=== PATIENT | female | born 1960 | race Caucasian/White ===

== ENCOUNTER 2019-04-30 10:44 | Inpatient (IN) | payer OTHER ==
[~2019-04-30] VITALS: Ht 144.8 cm; Wt 65.1 kg
[~2019-04-30 10:44] MED LIST: AMIT10 PO; AMOX500 PO; ASPI81CH PO; CODGUAEL PO; DOXY100 PO; PRED20 PO; PROCODE120 PO; Prinivil10 MG PO; TRAM50 PO
[2019-04-30] MEDS ORDERED: PRAV20 PO (11:12)
[2019-04-30 12:12] LABS: BASOPHILS ABSOLUTE AUTO 0.02 K/mm3 (0.00-0.23); BASOPHILS PERCENT AUTO 0 % (0-2); EOSINOPHILS ABSOLUTE AUTO 0.03 K/mm3 (0.00-0.68); EOSINOPHILS PERCENT AUTO 0 % (0-6); Hematocrit 20.2 % (33.0-51.0); IMMATURE GRAN ABSOLUTE AUTO 0.19 K/mm3 (0.00-0.10); IMMATURE GRAN PERCENT AUTO 1 % (0-1); LYMPHOCYTES PERCENT AUTO 3 % (21-46); MONOCYTES ABSOLUTE AUTO 0.91 K/mm3 (0.16-1.47); MONOCYTES PERCENT AUTO 7 % (4-13); Mean Corpuscular HGB 34.8 pg (26.0-34.0); Mean Corpuscular HGB Conc 34.7 g/dL (31.5-36.5); Mean Corpuscular Volume 101 fL (80-100); NEUTROPHILS PERCENT AUTO 89 % (41-73); Platelet Count 205 K/mm3 (150-400); RDW Standard Deviation 43.7 fL (35.1-46.3); Red Blood Cell Count 2.01 M/mm3 (3.80-5.20); White Blood Cell Count 13.55 K/mm3 (4.00-11.30)
[2019-04-30 12:39] LABS: Ethanol (Alcohol), Blood, Med <3 mg/dL; Troponin I <0.015 ng/mL (0.000-0.040)
[2019-04-30 12:56] LABS: Source, Urine Clean Catch
[2019-04-30 13:01] LABS: Bilirubin, Urine Neg (Neg); Blood, Urine Neg (Neg); Glucose Qualitative, Urine Neg (Neg); Ketones, Urine Neg (Neg); Leukocyte Esterase, Urine 1+ (Neg); Nitrite, Urine Neg (Neg); Protein, Urine Neg (Neg); Urobilinogen, Urine 1+ (Normal)
[2019-04-30 13:04] LABS: Alanine Aminotransfer (ALT/SGP 43 U/L (12-78); Albumin, Blood 2.2 g/dL (3.4-5.0); Albumin/Globulin Ratio 0.6 (0.8-1.8); Alk Phos 119 U/L (50-136); Anion Gap 13 mmol/L (6-16); Aspartate Aminotrans (AST/SGOT 23 U/L (12-37); Bilirubin, Total 0.5 mg/dL (0.1-1.0); Blood Urea Nitrogen 30 mg/dL (8-24); Bun/Creatinine Ratio 47.5 (12.0-20.0); CO2, Blood 17 mmol/L (21-32); Calcium, Blood 7.8 mg/dL (8.5-10.1); Chloride, Blood 83 mmol/L (98-108); Creatinine, Blood 0.63 mg/dL (0.40-1.00); Globulin, Blood 3.9 g/dL (2.2-4.0); Glomerular Filtration Rate >60 (60-); Glucose, Blood 76 mg/dL (70-99); Potassium, Blood 3.2 mmol/L (3.5-5.5); Sodium, Blood 113 mmol/L (136-145); Total Protein, Blood 6.1 g/dL (6.4-8.2)
[2019-04-30 13:07] LABS: Appearance, Urine Clear (Clear); Color, Urine Yellow (P-Yellow)
[2019-04-30 13:12] LABS: U Amphetamine Screen Not Detected; U Barbituate Screen Not Detected; U Benzodiazapine Screen Not Detected; U Buprenorphine Screen Not Detected; U Cannabinoids Screen Not Detected; U Cocaine Screen Not Detected; U Methadone Screen Not Detected; U Methamphetamine Screen Not Detected; U Opiates Screen Not Detected; U Oxycodone Screen Not Detected; U Phencyclidine Screen Not Detected; U Propoxyphene Screen Not Detected
[2019-04-30 13:14] LABS: Bacteria Few /hpf; Red Blood Cells, Urine 0-2 /hpf (0-2); Squamous Epithelial Cells Few /hpf (Few)
[2019-04-30] MEDS ORDERED: Norco 5-325 Ta1 EACH PO (13:52)
[2019-04-30 14:34] LABS: International Normalized Ratio 1.04
[2019-04-30 16:42] LABS: Hematocrit 16.4 % (33.0-51.0); Hemoglobin 5.8 g/dL (11.5-16.0)
[2019-04-30 16:59] LABS: Anion Gap 11 mmol/L (6-16); Blood Urea Nitrogen 27 mg/dL (8-24); Bun/Creatinine Ratio 50.3 (12.0-20.0); CO2, Blood 19 mmol/L (21-32); Calcium, Blood 7.5 mg/dL (8.5-10.1); Chloride, Blood 87 mmol/L (98-108); Creatinine, Blood 0.54 mg/dL (0.40-1.00); Glomerular Filtration Rate >60 (60-); Glucose, Blood 67 mg/dL (70-99); Potassium, Blood 3.2 mmol/L (3.5-5.5); Sodium, Blood 117 mmol/L (136-145)
--- NOTE | 2019-04-30 18:03 | NUR ---
ADMIT TO ICU, ROOM 5, VIA [facility] FROM ER. PATIENT ABLE TO TRANSFER FROM [facility] TO BED WITH SBA; SOMEWHAT WOBBILY. ADMITTED WITH DX: GI BLEED. RN CONTACTED DR. GARCIA (GI); HE STATES HE SPOKE TO ER PHYSICIAN AND WILL TRY AND SEE PATIENT THIS PM. WANTS PATIENT TO REMAIN NPO STATUS FOR NOW. PATIENT INFORMED RN THAT HER LAST BM WAS YESTERDAY AND HER STOOL WAS SOFT/FORMED AND BROWN; NO SIGN OF BLOOD. H&H WITH SIGNIFICANT DROP IN 4+ HOURS; 1ST UNIT RBC INITIATED IN E.D.; RN WILL COMPLETE TRANSFUSION AND THEN START 2ND UNIT RBC; WILL THEN CHECK BLOOD COUNT AGAIN. SEE ORDERS FOR DETAILS. PATIENT'S AUNT AND UNCLE BROUGHT HER TO THE ER AND ARE AT HER BEDSIDE NOW; VERY SUPPORTIVE. PATIENTS' NA+ LEVEL 117 AND K+ LEVEL WAS 3.2 (RECEIVED 1 LITER NS IN ER WELL K+RIDER. PATIENT DENIES GI UPSET BUT APPEARS PALE AND SOMEWHAT CONFUSED.
--- NOTE | 2019-04-30 19:00 | NUR ---
SUMMARY: REPORT GIVEN TO BETO MONROY. FAMILY REMAINS AT BEDSIDE; HOPING TO SPEAK WITH DR. MARISCAL' WHEN HE ARRIVES. PATIENT REMAINS NPO STATUS. 2ND UNIT RBC HUNG AT THIS TIME; WILL CHECK H&H FOLLOWING COMPLETION.
[2019-04-30] MEDS ORDERED: LISI20 PO (19:10)
--- NOTE | 2019-04-30 19:30 | NUR ---
PATIENT RESTING QUIETLY IN BED VISITING WITH FAMILY. 2ND UNIT OF PRBC INFUSING. PATIENT HAVING NO C/O PAIN OR NAUSEA.
[2019-04-30 21:43] LABS: Hematocrit 24.9 % (33.0-51.0); Hemoglobin 8.6 g/dL (11.5-16.0)
--- NOTE | 2019-04-30 21:43 | NUR ---
DOCTOR MARISCAL AND DOCTOR MADISON CALLED DOCTOR MARISCAL CALLED GIVEN UPDATE ON PATIENT AND INFORMED THAT PATIENT FAMILY ARE IN ROOM WITH PATIENT WHEN HE ARRIVES. DOCTOR MADISON CALLED FOR CLARIFICATION REGARDING IV FLUIDS AFTER PRBC TRANSFUSION.
--- NOTE | 2019-04-30 21:56 | NUR ---
DOCTOR DAVEY MOORE TO SEE PATIENT, FAMILY AT BEDSIDE
[2019-04-30 22:01] LABS: Anion Gap 10 mmol/L (6-16); Blood Urea Nitrogen 22 mg/dL (8-24); CO2, Blood 20 mmol/L (21-32); Calcium, Blood 7.4 mg/dL (8.5-10.1); Chloride, Blood 91 mmol/L (98-108); Creatinine, Blood 0.49 mg/dL (0.40-1.00); Glomerular Filtration Rate >60 (60-); Glucose, Blood 68 mg/dL (70-99); Potassium, Blood 3.4 mmol/L (3.5-5.5); Sodium, Blood 121 mmol/L (136-145)
[2019-05-01 01:43] LABS: Hematocrit 22.1 % (33.0-51.0); Hemoglobin 7.7 g/dL (11.5-16.0)
[2019-05-01 02:00] LABS: Anion Gap 9 mmol/L (6-16); Blood Urea Nitrogen 20 mg/dL (8-24); Bun/Creatinine Ratio 41.1 (12.0-20.0); CO2, Blood 21 mmol/L (21-32); Chloride, Blood 92 mmol/L (98-108); Creatinine, Blood 0.49 mg/dL (0.40-1.00); Glomerular Filtration Rate >60 (60-); Glucose, Blood 81 mg/dL (70-99); Sodium, Blood 122 mmol/L (136-145)
--- NOTE | 2019-05-01 06:42 | NUR ---
SUMMARY PATIENT RESTING QUIETLY, A&O BUT FORGETFUL AND SPONTANEOUS. 4TH UNIT PRBC INFUSING. PASSING SEVERAL SMALL LOOSE BLACK BM'S DURING THE NIGHT. PATIENT CANDACE TRANSFERRING TO BSC WITH 1 PERSON ASSIST. NO C/O PAIN OR NAUSEA T/O NIGHT. RECTAL AREA RED, CREAM PLACED TO RED AREA AND TO SCABS TO LOW BACK AND BUTTOCKS.
--- NOTE | 2019-05-01 07:39 | NUR ---
ASSUMED CARE REPORT FROM PORFIRIO Bedolla RN. PATIENT A&O, ASSISTED TO BSC WHERE SHE VOIDED AND PASSED DARK STOOL THAT SMELLED OF GI BLEED. UNSTEADY ON HER FEET. BACK WASHED, VAIBHAV AND AM CARE. BACK TO BED WITH BED ALARM ON. WANTED TO KEEP SCD'S OFF.
[2019-05-01 08:22] LABS: Hematocrit 30.4 % (33.0-51.0); Hemoglobin 10.6 g/dL (11.5-16.0); Mean Corpuscular HGB 31.4 pg (26.0-34.0); Mean Corpuscular HGB Conc 34.9 g/dL (31.5-36.5); Mean Corpuscular Volume 90 fL (80-100); Mean Platelet Volume 9.5 fL (9.1-12.4); Platelet Count 173 K/mm3 (150-400); RDW Coefficient Variation 14.6 % (11.7-14.2); Red Blood Cell Count 3.38 M/mm3 (3.80-5.20)
[2019-05-01 08:38] LABS: Anion Gap 9 mmol/L (6-16); Blood Urea Nitrogen 15 mg/dL (8-24); CO2, Blood 19 mmol/L (21-32); Calcium, Blood 7.4 mg/dL (8.5-10.1); Chloride, Blood 96 mmol/L (98-108); Creatinine, Blood 0.44 mg/dL (0.40-1.00); Glomerular Filtration Rate >60 (60-); Glucose, Blood 88 mg/dL (70-99); Potassium, Blood 3.8 mmol/L (3.5-5.5); Sodium, Blood 124 mmol/L (136-145)
[2019-05-01 08:51] LABS: BAND PERCENT MAN 4 % (0-8); BASOPHILS PERCENT MAN 0 % (0-2); EOSINOPHILS PERCENT MAN 0 % (0-6); LYMPHOCYTES ABSOLUTE MAN 0.55 K/mm3 (0.84-5.20); LYMPHOCYTES PERCENT MAN 5 % (21-46); METAMYELOCYTE ABSOLUTE MAN 0.11 K/mm3 (0.00-0.00); METAMYELOCYTE PERCENT MAN 1 % (0-0); MONOCYTES ABSOLUTE MAN 0.33 K/mm3 (0.16-1.47); MONOCYTES PERCENT MAN 3 % (4-13); SEG NEUTROPHILS PERCENT MAN 87 % (41-73); TOTAL CELLS COUNTED 100
--- NOTE | 2019-05-01 08:56 | NUR ---
PATIENT DOZING. ABDOMINAL ULTRASOUND BEING COMPLETED.
--- NOTE | 2019-05-01 13:25 | NUR ---
FREQUENT URGENT STOOLS
[2019-05-01 13:27] LABS: Hemoglobin 10.1 g/dL (11.5-16.0)
--- NOTE | 2019-05-01 16:56 | NUR ---
SON AT BEDSIDE. UPDATED ON CONDITION. PATIENT SAYS SHE IS GOING TO QUIT DRINKING. SHE ALSO TOLD ARMIDA WITH MATHEMATICAL SCIENCES PROFESSOR THE SAME.
--- NOTE | 2019-05-01 18:27 | NUR ---
DAY SURGERY HERE SETTING UP FOR EGD
--- NOTE | 2019-05-01 19:01 | NUR ---
05/01/191900 Windy Van History, Chart, Medications and Allergies reviewed before start of procedure.PATIENT DETERMINED TO BE ASA APPROPRIATE FOR PROPOFOL SEDATION PRIOR TO START OF PROCEDURE BY MONITOR INTACT WITH CONTINUOUS PULSE OXIMETRY AND INTERMITTENT BP. 3-LEAD EKG REVIEWED WITH PHYSICIAN PRIOR TO START OF PROCEDURE.O2 VIA N/C INTACT THROUGHOUT SEDATION/PROCEDURE.
--- NOTE | 2019-05-01 19:25 | NUR ---
EGD COMPLETE. PATIENT A&O. WILL REPORT TO PORFIRIO Bedolla RN
[2019-05-01 21:35] LABS: Anion Gap 7 mmol/L (6-16); Blood Urea Nitrogen 8 mg/dL (8-24); Bun/Creatinine Ratio 21.1 (12.0-20.0); CO2, Blood 22 mmol/L (21-32); Calcium, Blood 7.5 mg/dL (8.5-10.1); Chloride, Blood 99 mmol/L (98-108); Creatinine, Blood 0.38 mg/dL (0.40-1.00); Glomerular Filtration Rate >60 (60-); Glucose, Blood 91 mg/dL (70-99); Potassium, Blood 3.2 mmol/L (3.5-5.5); Sodium, Blood 128 mmol/L (136-145)
--- NOTE | 2019-05-01 21:44 | NUR ---
PATIENT AWAKENING EASILY POST EGD REQUESTING FOOD. NO C/O PAIN OR NAUSEA. DIET ORDER FOR FULL LIQUID DIET OBTAINED FROM DOCTOR MARISCAL. SEE NEW ORDERS FROM DOCTOR MARISCAL AND CARI TRIANA. PLAN TO TRANSFER TO ROOM [address] [place] [address] WITH TELE STATUS . PATIENT CANDACE PO WITHOUT DIFFICULTY. DOCTOR MARISCAL ABLE TO TALK WITH PATIENT AND PATIENTS FAMILY IN ROOM REGARDING EGD AND CONSULT FOR DOCTOR FERNANDEZ.
--- NOTE | 2019-05-01 23:12 | NUR ---
REPORT CALLED TO GABRIELLE PÉREZ FOR PATIENT TRANSFER TO ROOM 332
[2019-05-02 05:00] LABS: Hematocrit 29.9 % (33.0-51.0); Hemoglobin 10.3 g/dL (11.5-16.0); Mean Corpuscular HGB 31.7 pg (26.0-34.0); Mean Corpuscular HGB Conc 34.4 g/dL (31.5-36.5); Mean Corpuscular Volume 92 fL (80-100); Mean Platelet Volume 9.6 fL (9.1-12.4); Platelet Count 220 K/mm3 (150-400); RDW Coefficient Variation 15.5 % (11.7-14.2); RDW Standard Deviation 52.6 fL (35.1-46.3); Red Blood Cell Count 3.25 M/mm3 (3.80-5.20); White Blood Cell Count 10.72 K/mm3 (4.00-11.30)
--- NOTE | 2019-05-02 05:17 | NUR ---
SHIFT SUMMARY PT TRANSFERED FROM ICU 5. PT IS PLEASANT AND COOPERATIVE BUT FORGETFUL AT TIMES. SETTING OFF THE BED ALARM X 1 TO GET UP TO THE RESTROOM. SLIGHTLY UNSTEADY ON HER FEET. 1 ASSIST TO BSC. NO STOOL THIS EVENING. URINE DARK AND CONCENTRATED. PT HAS DENIED ANY PAIN OR NAUSEA. ATE JELLO AND BROTH THIS EVENING AND TOLERATED WELL. NO ACUTE CHANGES SINCE TRANSFER. PT RESTING IN BED AT THIS TIME. VSS. WILL CONTINUE TO MONITOR.
[2019-05-02 05:21] LABS: Albumin, Blood 1.6 g/dL (3.4-5.0); Anion Gap 6 mmol/L (6-16); Blood Urea Nitrogen 7 mg/dL (8-24); Bun/Creatinine Ratio 17.2 (12.0-20.0); CO2, Blood 22 mmol/L (21-32); Calcium, Blood 7.5 mg/dL (8.5-10.1); Chloride, Blood 100 mmol/L (98-108); Creatinine, Blood 0.41 mg/dL (0.40-1.00); Glomerular Filtration Rate >60 (60-); Glucose, Blood 100 mg/dL (70-99); Phosphorus, Blood 2.4 mg/dL (2.5-4.9); Potassium, Blood 3.4 mmol/L (3.5-5.5); Sodium, Blood 128 mmol/L (136-145)
[2019-05-02 05:30] LABS: BAND PERCENT MAN 4 % (0-8); BASOPHILS PERCENT MAN 0 % (0-2); EOSINOPHILS PERCENT MAN 0 % (0-6); LYMPHOCYTES ABSOLUTE MAN 0.64 K/mm3 (0.84-5.20); LYMPHOCYTES PERCENT MAN 6 % (21-46); METAMYELOCYTE PERCENT MAN 1 % (0-0); MONOCYTES ABSOLUTE MAN 0.32 K/mm3 (0.16-1.47); MONOCYTES PERCENT MAN 3 % (4-13); NEUTROPHILS ABSOLUTE MAN 9.64 K/mm3 (1.96-9.15); SEG NEUTROPHILS PERCENT MAN 86 % (41-73); TOTAL CELLS COUNTED 100
--- NOTE | 2019-05-02 19:00 | NUR ---
PT. IS IMPULSIVE AND DOES NOT USE THE CALL LIGHT. PT. FORGETFUL, CALLED HER SON TO BRING HER FISH AND CHIPS FOR DINNER, REMINDED HER SHE COULD ONLY HAVE FULL LIQUIDS, SISTER CAME IN AND PT. ASKED TO GO OUTSIDE, LET HER KNOW SHE HAD 2 IV FLUIDS THAT NEEDED TO RUN CONTINUOUSLY AND THAT SHE COULDN'T TAKE THEM OUTSIDE. TOLD HER COMPANY THAT I WAS A REAL MEANIE.
--- NOTE | 2019-05-03 00:22 | NUR ---
No s or sx of withdrawl noted at this time
--- NOTE | 2019-05-03 07:26 | NUR ---
a+o, complusive but cooperative, standby assist due to hoses, drip continued in one IV through out night, other saline locked, room air, walking rounds completed with day shift
[2019-05-03 09:35] LABS: Hematocrit 30.8 % (33.0-51.0); Hemoglobin 10.4 g/dL (11.5-16.0); Mean Corpuscular HGB 31.5 pg (26.0-34.0); Mean Corpuscular HGB Conc 33.8 g/dL (31.5-36.5); Mean Corpuscular Volume 93 fL (80-100); Mean Platelet Volume 9.4 fL (9.1-12.4); Platelet Count 234 K/mm3 (150-400); RDW Coefficient Variation 15.6 % (11.7-14.2); RDW Standard Deviation 53.1 fL (35.1-46.3); White Blood Cell Count 9.68 K/mm3 (4.00-11.30)
[2019-05-03 09:53] LABS: Albumin, Blood 1.7 g/dL (3.4-5.0); Anion Gap 10 mmol/L (6-16); Blood Urea Nitrogen 5 mg/dL (8-24); Bun/Creatinine Ratio 13.4 (12.0-20.0); CO2, Blood 20 mmol/L (21-32); Calcium, Blood 7.7 mg/dL (8.5-10.1); Chloride, Blood 95 mmol/L (98-108); Creatinine, Blood 0.37 mg/dL (0.40-1.00); Glomerular Filtration Rate >60 (60-); Glucose, Blood 154 mg/dL (70-99); Potassium, Blood 3.5 mmol/L (3.5-5.5); Sodium, Blood 125 mmol/L (136-145)
--- NOTE | 2019-05-03 19:00 | NUR ---
FAMILY MEETING WITH DR. MARISCAL RE: PT. PLAN OF CARE AND EXPLAINING PT.'S PROBLEMS. PT. HAS BEEN UP SEVERAL TIMES TO THE BATHROOM, SETS OFF BED ALARM EACH TIME, DOES NOT USE CALL LIGHT. STOOL SAMPLE COMPLETE.
--- NOTE | 2019-05-03 19:42 | NUR ---
DR Hwang here for gi consult with pt and family to discuss fininding and plan of care to treat gi bleed. sample for hpylori sent and reportednegative. PT continues impulsive and sets off bed alarm wanting to get up out of bed. Large Family present at bedside, discussed plan of care with MD Hwang for 30 minutes.
--- NOTE | 2019-05-04 02:56 | NUR ---
58 year old Female with negative CIWA denies need for antianxiety med to tx ETOH withdrawl. She is resting quietly and has no complaints except when up amb to bathroom says her knees hurt. PT's Family had care conferece with DR Skyler Hwang and he called at 0220 am to say PT may be transferred to [facility] today so dc lowfat diet and allow water only. PT has no CO nausea or abd pain on protonix gtt 10 ml per hour ongoing. Had a BM yesterday neg for HPylori. Up with 1 assist to amb to BR. Uses fww with slightly unsteady gait. Fall precautions with bed alarm continue. no fever or acute pain.
[2019-05-04 05:35] LABS: Albumin, Blood 1.7 g/dL (3.4-5.0); Anion Gap 7 mmol/L (6-16); Blood Urea Nitrogen 6 mg/dL (8-24); Bun/Creatinine Ratio 15.6 (12.0-20.0); CO2, Blood 24 mmol/L (21-32); Calcium, Blood 7.9 mg/dL (8.5-10.1); Chloride, Blood 95 mmol/L (98-108); Creatinine, Blood 0.38 mg/dL (0.40-1.00); Glomerular Filtration Rate >60 (60-); Glucose, Blood 98 mg/dL (70-99); Potassium, Blood 3.9 mmol/L (3.5-5.5); Sodium, Blood 126 mmol/L (136-145)
--- NOTE | 2019-05-04 08:44 | NUR ---
CIWA =0 AT THIS TIME. ALERT AND ORIENTED. WAITING FOR FOR POSSIBLE TRANSFER TO [facility].
[2019-05-04] MEDS ORDERED: B-1100 MG PO (12:59)
[2019-05-04] MEDS ORDERED: Multivitamin1 EAC1 PO (12:59)
[2019-05-04] MEDS ORDERED: PANT40 PO (13:00)
--- NOTE | 2019-05-04 15:06 | NUR ---
REVIEWED EXTENSIVELY D'C W/PATIENT AND SON. AWARE ; NO SMOKING, NO DRINKING ETOH OR ANY NSAIDS. AWARE TO KEEP F/U APPT NEXT WEEK. AWARE TO SCIENTIFIC INFORMATICS LEADER MEDS. ANSWER ALL QUESTIONS. IN W/C TO POV
[2019-07-06] MEDS ORDERED: Aspirin EC81 MG PO (11:13)
[2019-07-06] MEDS ORDERED: LISI20 PO (11:14)
[2019-07-06] MEDS ORDERED: Pravachol40 MG PO (11:14)
[2019-07-06] MEDS ORDERED: PROAIR RESPICL90 MCG INH (11:15)
[2019-07-06] MEDS ORDERED: VITAMIN D32000 UNI1 PO (11:15)
[2019-07-06] MEDS ORDERED: Flonase 0.05% N16 GM (11:15)
[2019-07-06] MEDS ORDERED: Colace100 MG PO (11:16)
[2019-07-06] MEDS ORDERED: HYDHCL25 PO (11:17)
[2019-07-06] MEDS ORDERED: DIGOX250 MCG PO (11:17)
[2019-07-06] MEDS ORDERED: PANT40 PO (11:17)
[2019-07-06] MEDS ORDERED: METO25ER PO (11:18)
[2019-07-06] MEDS ORDERED: DILTIAZEM 24HR240 M2 PO (11:18)
[2019-07-06] MEDS ORDERED: HYDR1TAB94 PO (11:22)
[2019-07-06] MEDS ORDERED: PRINIVIL10 MG PO (11:23)
== END 2019-05-04 14:58 | DRG 381 ==
LOC: ER 10:44 → ICUE 14:14 → ERHOLD 14:14 → MEDS 14:14 → ICUE 18:05 → MEDS 05-01 23:22
PROVIDERS: Emergency Medicine; Internal Medicine; Nurse Practitioner Acute Care; ADMIT Internal Medicine
PROC: 30233N1 Transfusion of Nonautologous Red Blood Cells into Peripheral Vein, Percutaneous Approach (ICD-10-PCS; principal; 2019-04-30)
PROC: 0DJ08ZZ Inspection of Upper Intestinal Tract, Via Natural or Artificial Opening Endoscopic (ICD-10-PCS; 2019-05-01)
DX: K22.11 Ulcer of esophagus with bleeding (principal); E87.1 Hypo-osmolality and hyponatremia; E44.1 Mild protein-calorie malnutrition; D62 Acute posthemorrhagic anemia; K26.6 Chronic or unspecified duodenal ulcer with both hemorrhage and perforation; I10 Essential (primary) hypertension; E78.5 Hyperlipidemia, unspecified; F17.210 Nicotine dependence, cigarettes, uncomplicated; E87.6 Hypokalemia; E87.70 Fluid overload, unspecified; F10.20 Alcohol dependence, uncomplicated; Z79.82 Long term (current) use of aspirin; J43.9 Emphysema, unspecified; Z86.14 Personal history of Methicillin resistant Staphylococcus aureus infection; E83.39 Other disorders of phosphorus metabolism; E86.0 Dehydration; T39.015A Adverse effect of aspirin, initial encounter; T39.315A Adverse effect of propionic acid derivatives, initial encounter; Y92.9 Unspecified place or not applicable
CPT/HCPCS: 36415; 36430; 70450; 71046; 74170; 80048; 80053; 80069; 81001; 82272; 83735; 83880; 84484; 85014; 85018; 85025; 85027; 85610; 85730; 86850; 86900; 86901; 86923; 87086; 87338; 93005; 93010; 93306; 93971; 93975; 94640; 94667; 94760; 96361; 96365; 96366; 96375; 97116; 97162; 97165; 97530; 99285-25; 99406; C9113; G0480; J2704; J3411; J3475; J3480; J7030; J7042; J7050; J7060; J7120; P9016; Q9967

== ENCOUNTER 2019-05-08 07:38 | Inpatient (IN) | payer OTHER ==
[~2019-05-08] VITALS: Ht 144.8 cm; Wt 53.5 kg
[~2019-05-08 07:38] MED LIST changes: +B-1100 MG PO; +LISI20 PO; +Multivitamin1 EAC1 PO; +Norco 5-325 Ta1 EACH PO; +PANT40 PO; +PRAV20 PO
[2019-05-08 08:25] LABS: Hematocrit 29.6 % (33.0-51.0); Hemoglobin 9.8 g/dL (11.5-16.0); Mean Corpuscular HGB 31.2 pg (26.0-34.0); Mean Corpuscular HGB Conc 33.1 g/dL (31.5-36.5); Mean Corpuscular Volume 94 fL (80-100); Mean Platelet Volume 9.9 fL (9.1-12.4); Platelet Count 386 K/mm3 (150-400); RDW Coefficient Variation 14.6 % (11.7-14.2); RDW Standard Deviation 50.9 fL (35.1-46.3); Red Blood Cell Count 3.14 M/mm3 (3.80-5.20)
[2019-05-08 08:50] LABS: BAND PERCENT MAN 25 % (0-8); BASOPHILS PERCENT MAN 0 % (0-2); EOSINOPHILS PERCENT MAN 0 % (0-6); LYMPHOCYTES ABSOLUTE MAN 0.73 K/mm3 (0.84-5.20); LYMPHOCYTES PERCENT MAN 11 % (21-46); MONOCYTES ABSOLUTE MAN 0.53 K/mm3 (0.16-1.47); MONOCYTES PERCENT MAN 8 % (4-13); NEUTROPHILS ABSOLUTE MAN 5.42 K/mm3 (1.96-9.15); SEG NEUTROPHILS PERCENT MAN 56 % (41-73); TOTAL CELLS COUNTED 100
[2019-05-08 08:57] LABS: Alanine Aminotransfer (ALT/SGP 32 U/L (12-78); Albumin, Blood 1.6 g/dL (3.4-5.0); Albumin/Globulin Ratio 0.4 (0.8-1.8); Alk Phos 127 U/L (50-136); Anion Gap 6 mmol/L (6-16); Aspartate Aminotrans (AST/SGOT 11 U/L (12-37); Bilirubin, Total 0.4 mg/dL (0.1-1.0); Blood Urea Nitrogen 7 mg/dL (8-24); Bun/Creatinine Ratio 17.5 (12.0-20.0); CO2, Blood 28 mmol/L (21-32); Calcium, Blood 7.7 mg/dL (8.5-10.1); Chloride, Blood 94 mmol/L (98-108); Ethanol (Alcohol), Blood, Med <3 mg/dL; Glomerular Filtration Rate >60 (60-); Glucose, Blood 90 mg/dL (70-99); Potassium, Blood 3.2 mmol/L (3.5-5.5); Sodium, Blood 128 mmol/L (136-145); Total Protein, Blood 5.6 g/dL (6.4-8.2); Troponin I 0.022 ng/mL (0.000-0.040)
[2019-05-08 09:45] LABS: Source, Urine Clean Catch
[2019-05-08 09:49] LABS: Bilirubin, Urine Neg (Neg); Blood, Urine Neg (Neg); Glucose Qualitative, Urine Neg (Neg); Ketones, Urine 1+ (Neg); Leukocyte Esterase, Urine Neg (Neg); Nitrite, Urine Neg (Neg); Protein, Urine 2+ (Neg); Specific Gravity, Urine 1.015 (1.003-1.022); Urobilinogen, Urine 2+ (Normal)
[2019-05-08 10:08] LABS: Appearance, Urine Clear (Clear); Color, Urine Yellow (P-Yellow)
[2019-05-08 10:09] LABS: Red Blood Cells, Urine 0-2 /hpf (0-2)
[2019-05-08 10:10] LABS: Bacteria Mod /hpf; Squamous Epithelial Cells Mod /hpf (Few)
--- NOTE | 2019-05-08 15:07 | NUR ---
pt arrived to pcu from ED, she is accompanied by a male family member. a/ox3, pleasant and cooperative with care, follows commands well, denies pain or sob. lungs are clear t/o, an occ wheeze, is currently on r/a, resp even and unlabored, no cough noted, hrr, tele in place running sr per monitor, see strip, 3+ edema noted to b/l le, ppp+1, cap refill <3sec, vs stable, afebrile, iv site is clear and patent, btx4, abd round soft nontender, voids without diff, skin c/w/d, maew, art, call light in reach.
[2019-05-08 16:07] LABS: Free Thyroxine 1.81 ng/dL (0.70-1.60)
[2019-05-08 16:09] LABS: Thyroid Stimulating Hormone 2.85 uIU/mL (0.360-4.800); Triiodothyronine, Free 2.2 pg/mL (2.18-3.98)
[2019-05-08 16:38] LABS: Percent Saturation 8.3 % (15.0-50.0)
--- NOTE | 2019-05-08 18:20 | NUR ---
PT INDEPENDENT TO BATHROOM, LOTS OF FAMILY IN ROOM, SHE STATES SHE IS COMFORTABLE. NO FURTHER CHANGES. CALL LIGHT IN REACH.
--- NOTE | 2019-05-08 21:27 | NUR ---
Notified by tele alarm security or surveillance monitor of tacycardic hr of 151 and change in rhythm from NSR to Afib. went to see pt, states she feels "sweaty" but denies SOB, chest pain, chest pressure. Pt alert and oriented. Breathing easy and unlabored. VS assessed and documented. Pt with return of NSR and HR in 90's within minutes. Currently resting comfortably eating emeka crackers. will continue to monitor.
[2019-05-09 03:52] LABS: BASOPHILS ABSOLUTE AUTO 0.08 K/mm3 (0.00-0.23); BASOPHILS PERCENT AUTO 1 % (0-2); Hematocrit 31.7 % (33.0-51.0); Hemoglobin 10.8 g/dL (11.5-16.0); LYMPHOCYTES ABSOLUTE AUTO 0.76 K/mm3 (0.84-5.20); LYMPHOCYTES PERCENT AUTO 9 % (21-46); MONOCYTES ABSOLUTE AUTO 0.98 K/mm3 (0.16-1.47); MONOCYTES PERCENT AUTO 11 % (4-13); Mean Corpuscular HGB 31.4 pg (26.0-34.0); Mean Corpuscular HGB Conc 34.1 g/dL (31.5-36.5); Mean Corpuscular Volume 92 fL (80-100); Mean Platelet Volume 9.9 fL (9.1-12.4); Platelet Count 443 K/mm3 (150-400); RDW Coefficient Variation 14.6 % (11.7-14.2); RDW Standard Deviation 49.1 fL (35.1-46.3); Red Blood Cell Count 3.44 M/mm3 (3.80-5.20); White Blood Cell Count 8.64 K/mm3 (4.00-11.30)
[2019-05-09 03:58] LABS: EOSINOPHILS ABSOLUTE AUTO 0.05 K/mm3 (0.00-0.68); EOSINOPHILS PERCENT AUTO 1 % (0-6); IMMATURE GRAN ABSOLUTE AUTO 0.17 K/mm3 (0.00-0.10); IMMATURE GRAN PERCENT AUTO 2 % (0-1); NEUTROPHILS PERCENT AUTO 76 % (41-73)
[2019-05-09 04:14] LABS: Anion Gap 6 mmol/L (6-16); Blood Urea Nitrogen 9 mg/dL (8-24); Bun/Creatinine Ratio 21.4 (12.0-20.0); CO2, Blood 29 mmol/L (21-32); Calcium, Blood 7.9 mg/dL (8.5-10.1); Chloride, Blood 94 mmol/L (98-108); Creatinine, Blood 0.42 mg/dL (0.40-1.00); Glomerular Filtration Rate >60 (60-); Glucose, Blood 116 mg/dL (70-99); Potassium, Blood 3.7 mmol/L (3.5-5.5); Sodium, Blood 129 mmol/L (136-145)
--- NOTE | 2019-05-09 05:33 | NUR ---
Shift Summary VSS. no new events on tele since paroxysmal afib event. Pt remains alert and oriented, independant in room, o2 saturations>90% on RA. pt slept on and off this shift. denies chest pain or pressure, denies SOB. Uses call light appropriately, makes needs known. No changes since initial assessment. Will continue to monitor and update.
--- NOTE | 2019-05-09 08:08 | NUR ---
PT LAYING IN BED WATCHING TV, A/OX3, [place], PLEASANT AND COOPERATIVE WITH CARE, FOLLOWS COMMANDS WELL, STATES SHE DID NOT SLEEP WELL LAST NIGHT, BUT FEELS OK. LUNGS ARE CLEAR IN UPPER EMERSON, COURSE IN BASES, RESP EVEN AND UNLABORED, SATES ARE IN THE MID 90'S, NO COUGH NOTED, HRR, TELE IN PLACE RUNNING SR PER MONITOR, SEE STRIP, 3+PITTING EDEMA, PT STATES IS NOT TIGHT YESTERDAY, PPP FAINT, CAP REFILL <3SEC, VS STABLE, TEMP OF 100.2, SHE IS SEVERAL BLANKETS IN PLACE, IV TO R HAND SITE IS CLEAR AND PATENT, BTX4, ABD ROUND SOFT NONTENDER, VOIDING WITH OUT DIFF, SKIN C/W/D, JEAN HENRIQUEZ, CALL LIGHT IN REACH.
--- NOTE | 2019-05-09 13:35 | NUR ---
REPORT RECEIVED FROM PRAVEEN RN, NO ACUTE ISSUES NOTED, PATIENT RESTING QUEITLY. WILL CONTINUE TO MONITOR FOR CHANGES.
--- NOTE | 2019-05-09 20:05 | NUR ---
NO ACUTE CHANGES NOTED. PATIENT CONTINUES TO MAINTAIN HEART RATE IN THE 130'S - 140'S. PATIENT HAD A 13 BEAT RUN OF MD PETE IS AWARE. PATIENT SEEMS TO BE SLIGHTLY CONFUSED AN DISORIENTED WHEN SHE WAKES FROM NAPPING AND NEEDS TO GET UP AND GO TO THE RESTROOM. NO CURRENT COMPLAINTS OF PAIN OR DISCOMFORT NOTED. WILL CONTINUE TO MONITOR FOR CHANGES.
--- NOTE | 2019-05-10 03:24 | NUR ---
ASSUMED CARE OF PATIENT AT [facility] 1909 FROM DAVID Aggarwal RN. PATIENT ALERT AND ORIENTED; HARD OF HEARING; FORGETFUL AND IMPULSIVE AT TIMES; PATIENT APPEARS UNSTEADY ON FEET WHEN FIRST GETTING OUT OF BED; BEDSIDE COMMODE USED. PATIENT REPORTS PAIN IN LEGS AND BACK; LEG PAIN RELATED TO EDEMA; CHRONIC BACK PAIN; MEDICATED PER EMAR AND K-PAD GIVEN; PATIENT REPORTS GOOD RESULTS. PATIENT HAS ATTENDS IN PLACE FOR INCONTINENCE WHEN GETTING UP TO BEDSIDE COMMODE; PATIENT DENIES NUMBNESS, TINGLING, DIZZINESS AND NAUSEA. PATIENT'S IV WAS NOT PATENT AT SHIFT CHANGE; BEARING MAKER PLACE NEW IV; CARDIZEM GTT RESTARTED; DIG LOADED. AFIB WITH RATE IN 140'S AT START OF SHIFT; RATE CURRENTLY 110'S; CARDIZEM TITRATED FROM 20 TO 10ML/HR. MULTIPLE FAMILY MEMBERS VISITING AT SHIFT CHANGE. PATIENT CURRENTLY RESTING IN BED; CALL LIGHT IN REACH; BED IN LOWEST POSISTION; WILL CONTINUE TO MONITOR AND ASSESS UNTIL END OF SHIFT.
[2019-05-10 04:24] LABS: BASOPHILS ABSOLUTE AUTO 0.04 K/mm3 (0.00-0.23); BASOPHILS PERCENT AUTO 1 % (0-2); EOSINOPHILS PERCENT AUTO 2 % (0-6); Hematocrit 30.4 % (33.0-51.0); Hemoglobin 10.1 g/dL (11.5-16.0); IMMATURE GRAN ABSOLUTE AUTO 0.06 K/mm3 (0.00-0.10); IMMATURE GRAN PERCENT AUTO 1 % (0-1); LYMPHOCYTES ABSOLUTE AUTO 0.87 K/mm3 (0.84-5.20); LYMPHOCYTES PERCENT AUTO 14 % (21-46); MONOCYTES PERCENT AUTO 13 % (4-13); Mean Corpuscular HGB 31.6 pg (26.0-34.0); Mean Corpuscular HGB Conc 33.2 g/dL (31.5-36.5); Mean Corpuscular Volume 95 fL (80-100); Mean Platelet Volume 9.5 fL (9.1-12.4); NEUTROPHILS ABSOLUTE AUTO 4.34 K/mm3 (1.96-9.15); NEUTROPHILS PERCENT AUTO 70 % (41-73); Platelet Count 437 K/mm3 (150-400); RDW Coefficient Variation 14.6 % (11.7-14.2); RDW Standard Deviation 50.3 fL (35.1-46.3); White Blood Cell Count 6.21 K/mm3 (4.00-11.30)
[2019-05-10 04:49] LABS: Alanine Aminotransfer (ALT/SGP 29 U/L (12-78); Albumin, Blood 1.7 g/dL (3.4-5.0); Albumin/Globulin Ratio 0.4 (0.8-1.8); Alk Phos 126 U/L (50-136); Anion Gap 5 mmol/L (6-16); Aspartate Aminotrans (AST/SGOT 21 U/L (12-37); Bilirubin, Total 0.4 mg/dL (0.1-1.0); Blood Urea Nitrogen 8 mg/dL (8-24); Bun/Creatinine Ratio 20.5 (12.0-20.0); CO2, Blood 31 mmol/L (21-32); Calcium, Blood 7.9 mg/dL (8.5-10.1); Chloride, Blood 92 mmol/L (98-108); Creatinine, Blood 0.39 mg/dL (0.40-1.00); Glomerular Filtration Rate >60 (60-); Glucose, Blood 97 mg/dL (70-99); Potassium, Blood 3.3 mmol/L (3.5-5.5); Sodium, Blood 128 mmol/L (136-145); Total Protein, Blood 5.7 g/dL (6.4-8.2)
[2019-05-10 06:56] LABS: Digoxin (Lanoxin) 1.48 ug/mL (0.80-2.00)
--- NOTE | 2019-05-10 07:28 | NUR ---
DR. GUTIERREZ BEDSIDE WITH PATIENT THIS MORNING BEFORE SHIFT CHANGE; WILL ADJUST MEDICATIONS. PATIENT SLEPT ABOUT SIX HOURS LAST NIGHT. VSS. REPORT GIVEN TO DAYSHIFT RN.
--- NOTE | 2019-05-10 09:30 | NUR ---
PT PLEASANT COOP CONCRETE. OCC FORGETFUL. DENIES PAIN. A/O. H/R IRREG, NO MURMER NOTED. PER TELE: AFIB AVG 120'S. LUNGS WET SOUNDING T.O. DID NOT CLEAR WITH COUGH. ON R/A. RESP EASY, UNLABORED. BT X4 LAST BM TODAY. VOIDS PER BATHROOM. SBA ASST. NO OTHER CONCERNS AT THIS TIME.
--- NOTE | 2019-05-10 13:12 | NUR ---
DR PINZON [facility] FOR CONSULT PER HIS NOTES. ADVISED DR PAUL PT HAS TEMP. 100.4, TYLENOL ADMIN.
--- NOTE | 2019-05-10 13:13 | NUR ---
[id number] [facility] ADMIN. STOP DRIP AT [id number]
--- NOTE | 2019-05-10 13:14 | NUR ---
H/R NOW 112 AVG. CARDIZEM DRIP STOPPED NOON.
--- NOTE | 2019-05-10 15:56 | NUR ---
XRAY CALLED. TOOK 2L FLUID FROM ABD. CALLED DR MADISON. NO ALBUMIN. NOTIFIED PHARMACY PT BREATHING BETTER. RESP ABOUT 28 NOW. PT STATES FEELS BETTER.
--- NOTE | 2019-05-10 18:33 | NUR ---
PT PLEASANT TODAY. HAD TO BE PIERRE WITH HER TO GET HER TO USE CALL LITE NOT JUST TAKE OFF TO BATHROOM. HAS AGREED TO DO SO WITH BETTER COMPLIANCE. FAMILY IN AND OUT TODAY. CARDIZEM DRIP OFF TODAY. MAINTAINING REASONABLE H/R IN LOW ONE TEENS. TEMP DID COME BACK DOWN TO 99.0 LAST CHECK. NO OTHER CONCERNS AT THIS TIME BED IN LOW POSITION, CALL LITE IN REACH. BED ALARM ON FOR SAFETY
--- NOTE | 2019-05-10 21:37 | NUR ---
ASSUMED CARE OF PATIENT AT [facility] 191 FROM SYED Lazo RN. PATIENT ALERT AND ORIENTED; HARD OF HEARING; FORGETFUL AND IMPULSIVE AT TIMES; PATIENT APPEARS UNSTEADY ON FEET WHEN FIRST GETTING OUT OF BED; REPORTS "YA, IM NOT AWAKE"; BEDSIDE COMMODE USED. PATIENT REPORTS PAIN IN LEGS AND BACK; REPORTS TOLERABLE WITH KPAD; REFUSED MEDICATIONS; PATIENT HAS ATTENDS IN PLACE FOR INCONTINENCE WHEN GETTING UP TO BEDSIDE COMMODE; PATIENT DENIES NUMBNESS, TINGLING, DIZZINESS AND NAUSEA. PATIENT'S IV WAS NOT PATENT AT SHIFT CHANGE; NEW IV PLACED DURING DAYSHIFT; OLD IV REMOVED. AFIB ON TELE WITH RATE IN 110'S AT START OF SHIFT; OXYGEN SATURATION ABOVE 90% ON ROOM AIR; MULTIPLE FAMILY MEMBERS VISITING AT SHIFT CHANGE. FAMILY MEMBERS EXPRESSED CONCERN ABOUT PATIENT BEING HOME ALONE; TWIST MAKER CONSULT PLACED. PATIENT CURRENTLY RESTING IN BED; CALL LIGHT IN REACH; BED IN LOWEST POSISTION; WILL CONTINUE TO MONITOR AND ASSESS UNTIL END OF SHIFT.
[2019-05-11 04:08] LABS: Hematocrit 29.8 % (33.0-51.0); Hemoglobin 9.8 g/dL (11.5-16.0); Mean Corpuscular HGB 30.8 pg (26.0-34.0); Mean Corpuscular HGB Conc 32.9 g/dL (31.5-36.5); Mean Corpuscular Volume 94 fL (80-100); Mean Platelet Volume 9.5 fL (9.1-12.4); Platelet Count 483 K/mm3 (150-400); RDW Coefficient Variation 14.6 % (11.7-14.2); RDW Standard Deviation 50.3 fL (35.1-46.3); Red Blood Cell Count 3.18 M/mm3 (3.80-5.20); White Blood Cell Count 6.58 K/mm3 (4.00-11.30)
[2019-05-11 04:31] LABS: Anion Gap 10 mmol/L (6-16); Blood Urea Nitrogen 9 mg/dL (8-24); Bun/Creatinine Ratio 22.2 (12.0-20.0); CO2, Blood 26 mmol/L (21-32); Calcium, Blood 7.8 mg/dL (8.5-10.1); Chloride, Blood 94 mmol/L (98-108); Creatinine, Blood 0.41 mg/dL (0.40-1.00); Glomerular Filtration Rate >60 (60-); Glucose, Blood 130 mg/dL (70-99); Potassium, Blood 3.8 mmol/L (3.5-5.5); Sodium, Blood 130 mmol/L (136-145)
[2019-05-11 04:34] LABS: BAND PERCENT MAN 18 % (0-8); BASOPHILS PERCENT MAN 0 % (0-2); EOSINOPHILS ABSOLUTE MAN 0.06 K/mm3 (0.00-0.68); EOSINOPHILS PERCENT MAN 1 % (0-6); LYMPHOCYTES ABSOLUTE MAN 0.72 K/mm3 (0.84-5.20); LYMPHOCYTES PERCENT MAN 11 % (21-46); MONOCYTES ABSOLUTE MAN 0.72 K/mm3 (0.16-1.47); MONOCYTES PERCENT MAN 11 % (4-13); NEUTROPHILS ABSOLUTE MAN 5.06 K/mm3 (1.96-9.15); SEG NEUTROPHILS PERCENT MAN 59 % (41-73); TOTAL CELLS COUNTED 100
[2019-05-11 04:37] LABS: Digoxin (Lanoxin) 0.67 ug/mL (0.80-2.00)
--- NOTE | 2019-05-11 05:32 | NUR ---
PATIENT SLEPT ABOUT SIX HOURS LAST NIGHT; VERY IMPULSIVE; SET OFF BED ALARM; DID NOT USE CALL LIGHT APPROPRIATELY. PATIENT WAS INCONTINENT OF STOOL ON FLOOR TWICE; PATIENT WOULD REMOVE CLOTHES REPEATEDLY. PATIENT REPORTED BLOOD IN STOOL; SCANT AMOUNT OF BRIGHT RED STOOL NOTED; PATIENT HAD MULTIPLE BOWEL MOVEMENT'S THROUGHTOUT THE NIGHT. VSS. WILL CONTINUE TO MONITOR AND ASSESS UNTIL END OF SHIFT.
--- NOTE | 2019-05-11 08:10 | NUR ---
PT LAYING IN BED, AWAKE WATCHING TV. SHE IS A/OX3, [place], SHE IS ODD, IMPULSIVE, HAS TO BE REDIRECTED ABOUT THE SAME THINGS AT TIMES, BUT DID REMEMBER THIS NURSE FROM A FEW DAYS AGO. SHE IS COOPERATIVE WITH CARE, FOLLOWS COMMANDS MOSTLY, TAKES PO MEDS WITHOUT DIFF WITH WATER, LUNGS ARE CLEAR IN UPPER EMERSON, DIM IN BASES, RESP EVEN AND UNLABORE, NO COUGH NOTED, IS CURRENTLY ON R/A, HRIRR, TELE IN PLACE RUNNING AFIB PER MONITOR, AT 142 THIS AM, DR. PERES CHANGED SOME MEDICATIONS, WILL START NEW DOSES THIS AM, PT DENIES PAIN OR SOB AT THIS TIME, IV SITE TO RIGHT HAND, EDEMA NOTED TO B/L LE, PPP +1, CAP REFILL <3SEC, VS STABLE, FEBRILE, BTX4, ABD ROUND SOFT NONTENDER, VOIDS WITHOUT DIFF, SKIN C/W/D, MAEW, JEAN, CALL LIGHT IN REACH.
--- NOTE | 2019-05-11 14:05 | NUR ---
PT CONVERTED TO SINUS RHYTHM AT 1300, SHE IS RESTING QUIETLY IN BED, NO COMPLAINTS OR NEEDS AT THIS TIME. CALL LIGHT IN REACH.
--- NOTE | 2019-05-11 19:15 | NUR ---
ASSUMING CARE OF PT AT THIS TIME. PT REPORT RECEIVED AT BEDSIDE WITH OFFGOING NURSE, SYDNEE PÉREZ. PT LAYING IN BED, WATCHING TELEVISION UPON ENTERING THE ROOM. PT DOES NOT APPEAR TO BE IN DISTRESS AT THIS TIME. WILL REVIEW PLAN OF CARE.
--- NOTE | 2019-05-11 19:30 | NUR ---
ASSESSMENT PT A&O EXCEPT TO DATE/TIME/EVENT, FORGETFUL, IMPULSIVE, SLIGHTLY CONFUSED, SPONT OPENS EYES, CALM, COOPERATIVE. SENSATION INTACT. DENIES N/T. PT STEVE. NORMAL STRENGTH BUE'S. WEAKNESS BLE'S. PT C/O SLIGHT WEAKNESS BLE'S FROM BASELINE. PT ABLE TO REPOSITION SELF IN BED. 1P SBA WITH AMBULATION. PT DENIES PAIN/DISCOMFORT. NO S/SX OF PAIN/DISCOMFORT NOTED. HEATING PAD TO BACK FOR PREVIOUS BACK DISCOMFORT. LUNGS CLEAR, LOWER LOBES DIMINIHSED. PT ON RA. OXY SAT >90%. RR 16. DENIES SOB REST. DYSPNEA ON EXERTION. OCC NONPRODUCTIVE COUGH. AFEBRILE. AFIB WITH OCC PVC'S PER STREET SUPERINTENDENT. HR 90'S TO 100'S AT RESTING. HR INCREASES TO 120'S WITH ACTIVITY. STRONG RADIAL PULSES. FAINT TIBIAL AND PEDAL PULSES. EDEMA BLE'S. WARM, PINK SKIN. RUE HOT - ICE PACK APPLIED. ACTIVE BT X4 QUADRANTS. ABD MILD DIST (PT STATES ABD DIST IS NORMAL), SOFT, NONTENDER. NO N/V. NO BM. PT TOLERATING PO FLUIDS. NPO AT MIDNIGHT FOR ABD CT. 1P SBA FOR BATHROOM PRIVELEGES. CLEAR, YELLOW URINE. PIV X1 - SL.
[2019-05-12 04:01] LABS: Hematocrit 27.9 % (33.0-51.0); Hemoglobin 9.3 g/dL (11.5-16.0); Mean Corpuscular HGB 31.2 pg (26.0-34.0); Mean Corpuscular HGB Conc 33.3 g/dL (31.5-36.5); Mean Corpuscular Volume 94 fL (80-100); Mean Platelet Volume 9.4 fL (9.1-12.4); Platelet Count 445 K/mm3 (150-400); RDW Coefficient Variation 14.3 % (11.7-14.2); RDW Standard Deviation 48.9 fL (35.1-46.3); Red Blood Cell Count 2.98 M/mm3 (3.80-5.20); White Blood Cell Count 7.07 K/mm3 (4.00-11.30)
[2019-05-12 04:25] LABS: Albumin, Blood 1.7 g/dL (3.4-5.0); Anion Gap 9 mmol/L (6-16); Blood Urea Nitrogen 7 mg/dL (8-24); Bun/Creatinine Ratio 17.5 (12.0-20.0); CO2, Blood 26 mmol/L (21-32); Calcium, Blood 7.7 mg/dL (8.5-10.1); Chloride, Blood 90 mmol/L (98-108); Glomerular Filtration Rate >60 (60-); Glucose, Blood 86 mg/dL (70-99); Phosphorus, Blood 3.8 mg/dL (2.5-4.9); Potassium, Blood 3.8 mmol/L (3.5-5.5); Sodium, Blood 125 mmol/L (136-145)
[2019-05-12 04:33] LABS: Digoxin (Lanoxin) 0.91 ug/mL (0.80-2.00)
--- NOTE | 2019-05-12 04:44 | NUR ---
SHIFT ASSESSMENT NO ACUTE CHANGES NOTED T/O SHIFT. PT SLEPT ON AND OFF T/O SHIFT. PT CURRENTLY AWAKE AND WATCHING TELEVISION. PT A&O EXCEPT TO DATE/TIME/EVENT, FORGETFUL, IMPULSIVE, SLIGHTLY CONFUSED, SPONT OPENS EYES, COOPERATIVE. PT RARELY USES CALL LIGHT APPROPRIATELY. SIDE RAILS AND BED ALARM ARM. SENSATION INTACT. DENIES N/T. PT STEVE. NORMAL STRENGTH BUE'S. WEAKNESS BLE'S. PT C/ SLIGHT WEAKNESS BLE'S FROM BASELINE. PT ABLE TO REPOSITION SELF IN BED. 1P SBA WITH AMBUALTION. PT DENIED PAIN/DISCOMFORT. NO S/SX OF PAIN/DISCOMFORT NOTED. HEATING PAD TO BACK TURNED OFF AT 0300 D/T TEMP 99.7. LUNGS CLEAR, LOWER LOBES DIMINISHED. PT ON RA. OXY SAT >90%. RR 14 TO 16. DENIES SOB AT REST. DYSPNEA ON EXERTION. OCC NONPRODUCTIVE COUGH. TMAX 99.7 - HEATING PAD TURNED OFF, REMOVED BLANKET, AND DECREASED ROOM TEMP. PER FIELD MECHANIC - PT CONT TO CONVERT BETWEEN AFIB WITH OCC PVC'S AND NSR/ST WITH OCC PAC'S AND PVC'S. PER FIELD MECHANIC - PT IS CURRENTLY AFIB WITH OCC PVC'S. HR 90'S TO 120'S T/O SHIFT. INCREASED HR NOTED WITH ACTIVITY. STRONG RADIAL PULSES. FAINT TIBIAL AND PEDAL PULSES. EDEMA BLE'S. WARM, PINK SKIN. RUE HOT - ICE PACKS APPLIED. ACTIVE BT X4 QUADRANTS. ABD MILD DIST (PT STATES ABD DIST IF NORMAL), SOFT, TENDER WITH AND WITHOUT PALPATION. NO N/V. NO BM. PT TOLERATED PO FLUIDS UNTIL 0000. NPO AT MIDNIGHT FOR SCHEDULED CT OF ABD. 1P SBA FOR BATHROOM PRIVELEGES. CLEAR, YELLOW URINE. PIV X1 - SL. WILL CONT TO MONITOR PT AND WILL PROVIDE BEDSIDE REPORT TO ONCOMING NURSE THIS AM.
--- NOTE | 2019-05-12 05:26 | NUR ---
DR. HAMILTON CALLED DR. HAMILTON AT 0500. DR. HAMILTON CALLED [facility] BACK AT THIS TIME. INFORMED DR. HAMILTON OF LABS. DR. HAMILTON ORDERED REPEAT CHEM 8 AT 1000 D/T SODIUM 125.
--- NOTE | 2019-05-12 07:51 | NUR ---
ASSUMED CARE: REPORT RECEIVED FROM PRITESH Bedolla RN. ASSUMED CARE OF THIS PT AT APPROX 0700. ON ASSESSMENT, THE PT IS IMPULSIVE, CLIMBING OOB & WALKING TOWARDS BATHROOM. BED ALARM IS ON FOR SAFETY. PT STS SHE DOES NOT CALL FOR ASSISTANCE PRIOR TO STANDING, BECAUSE "THE BED DOES IT" FOR HER. ASSESSMENT CHARTED, VSS. PT HAS BEEN NPO SINCE [facility] FOR POSS F/U ABD CT THIS AM. WILL CONTINUE TO MONITOR & UPDATE NEEDED.
--- NOTE | 2019-05-12 09:05 | NUR ---
CONTRAST STUDY: RETAIL [employer]S PROFESSIONAL IN PT's ROOM TO DELIVER PO CONTRAST FOR CT ABD. PT DRINKING ORDERED.
[2019-05-12 10:30] LABS: Anion Gap 10 mmol/L (6-16); Blood Urea Nitrogen 6 mg/dL (8-24); Bun/Creatinine Ratio 14.2 (12.0-20.0); CO2, Blood 24 mmol/L (21-32); Chloride, Blood 90 mmol/L (98-108); Creatinine, Blood 0.42 mg/dL (0.40-1.00); Glomerular Filtration Rate >60 (60-); Glucose, Blood 82 mg/dL (70-99); Potassium, Blood 3.4 mmol/L (3.5-5.5); Sodium, Blood 124 mmol/L (136-145)
--- NOTE | 2019-05-12 18:34 | NUR ---
SHIFT SUMMARY: NO ACUTE CHANGES THIS SHIFT. PT REMAINS A&O, PLEASANT & COOPERATIVE. SHE IS SOMEWHAT IMPULSIVE & BED ALARM IS ON. LS ARE CLEAR T/O, PT ON RA W/ O2 SATS > 92%. TELE MONITOR SHOWS SR W/ HR 90s ON AVG. OCCASIONAL AFIB W/ HR 120s NOTED ON EXERTION, PT RECOVERS QUICKLY. BT x4, PT HAS HEALTHY APPETITE. VOIDING W/O DIFFICULTY & AMBULATING TO BR W/ SBA. SKIN OVERALL CDI. WILL CONTINUE TO MONITOR & REPORT OFF TO ONCOMING RN.
[2019-05-13 04:31] LABS: Albumin, Blood 1.8 g/dL (3.4-5.0); Anion Gap 10 mmol/L (6-16); Blood Urea Nitrogen 5 mg/dL (8-24); Bun/Creatinine Ratio 12.6 (12.0-20.0); CO2, Blood 25 mmol/L (21-32); Calcium, Blood 7.7 mg/dL (8.5-10.1); Chloride, Blood 91 mmol/L (98-108); Glomerular Filtration Rate >60 (60-); Glucose, Blood 105 mg/dL (70-99); Phosphorus, Blood 4.8 mg/dL (2.5-4.9); Potassium, Blood 3.4 mmol/L (3.5-5.5); Sodium, Blood 126 mmol/L (136-145)
--- NOTE | 2019-05-13 05:15 | NUR ---
END OF SHIFT SUMMARY PT HAS BEEN UP AND OUT OF BED MULTIPLE TIMES THIS SHIFT. PT NOTED TO BE QUITE IMPULSIVE BUT IS COOPERATIVE. PT HAS REMAINED IN SINUS RHYTHM THIS SHIFT. VSS. PT HAS NOT SHOWN SIGNS OF ETOH W/DRAWAL, PT HAS DENIED FEELING ANY OF THESE SYMPTOMS. BNP NOTED TO BE ON DOWNWARD TREND, CURRENT LEVEL 567. PT HAS REMAINED ON RA. NA LEVELS COLNTINUE TO BE LOW AT 126. PT USES CALL LIGHT APPROPRIATELY, WITHIN REACH. WILL CONTINUE TO MONITOR PT UNTIL SHIFT CHANGE.
[2019-05-13] MEDS ORDERED: ACET325 PO (11:16)
[2019-05-13] MEDS ORDERED: LANOXIN250 MC1 PO (11:17)
[2019-05-13] MEDS ORDERED: FURO80 PO (11:18)
[2019-05-13] MEDS ORDERED: CARDIZEM CD PO (11:18)
[2019-05-13] MEDS ORDERED: DIABETIC S100 MG/5 M PO (11:20)
[2019-05-13] MEDS ORDERED: HYDCOR2.5C UD (11:22)
[2019-05-13] MEDS ORDERED: LEVO750 PO (11:23)
[2019-05-13] MEDS ORDERED: Vsl#3 Capsule1 EACH PO (11:23)
[2019-05-13] MEDS ORDERED: METO25ER PO (11:25)
[2019-05-13] MEDS ORDERED: K-Dur20 MEQ PO (11:26)
[2019-07-06] MEDS ORDERED: Aspirin EC81 MG PO (11:13)
[2019-07-06] MEDS ORDERED: LISI20 PO (11:14)
[2019-07-06] MEDS ORDERED: Pravachol40 MG PO (11:14)
[2019-07-06] MEDS ORDERED: Flonase 0.05% N16 GM (11:15)
[2019-07-06] MEDS ORDERED: PROAIR RESPICL90 MCG INH (11:15)
[2019-07-06] MEDS ORDERED: VITAMIN D32000 UNI1 PO (11:15)
[2019-07-06] MEDS ORDERED: Colace100 MG PO (11:16)
[2019-07-06] MEDS ORDERED: PANT40 PO (11:17)
[2019-07-06] MEDS ORDERED: DIGOX250 MCG PO (11:17)
[2019-07-06] MEDS ORDERED: HYDHCL25 PO (11:17)
[2019-07-06] MEDS ORDERED: DILTIAZEM 24HR240 M2 PO (11:18)
[2019-07-06] MEDS ORDERED: METO25ER PO (11:18)
[2019-07-06] MEDS ORDERED: HYDR1TAB94 PO (11:22)
[2019-07-06] MEDS ORDERED: PRINIVIL10 MG PO (11:23)
== END 2019-05-13 12:49 | disposition home health service (06) | DRG 291 ==
LOC: ER 07:38 → ERHOLD 07:39 → PCU 14:54
PROVIDERS: Internal Medicine; Internal Medicine Cardiovascular Disease; Physician Assistant; ADMIT Internal Medicine
DX: I11.0 Hypertensive heart disease with heart failure (principal); J96.01 Acute respiratory failure with hypoxia; I50.31 Acute diastolic (congestive) heart failure; K63.1 Perforation of intestine (nontraumatic); J18.9 Pneumonia, unspecified organism; E87.1 Hypo-osmolality and hyponatremia; J44.1 Chronic obstructive pulmonary disease with (acute) exacerbation; E44.1 Mild protein-calorie malnutrition; J44.0 Chronic obstructive pulmonary disease with (acute) lower respiratory infection; E87.6 Hypokalemia; E87.8 Other disorders of electrolyte and fluid balance, not elsewhere classified; E88.09 Other disorders of plasma-protein metabolism, not elsewhere classified; E78.5 Hyperlipidemia, unspecified; E87.70 Fluid overload, unspecified; Z87.891 Personal history of nicotine dependence; F10.20 Alcohol dependence, uncomplicated; K70.9 Alcoholic liver disease, unspecified; K64.4 Residual hemorrhoidal skin tags; I48.0 Paroxysmal atrial fibrillation
CPT/HCPCS: 36415; 71045; 71046; 74160; 76380; 80048; 80053; 80069; 80162; 81001; 82728; 83540; 83550; 83605; 83690; 83880; 84145; 84439; 84443; 84481; 84484; 85025; 85027; 87040; 87086; 93005; 93010; 93308; 93970; 94640; 94762; 97110; 97116; 97162; 97530; 99285-25; A9270; G0480; J1160; J1650; J1940; Q9967

== ENCOUNTER 2019-05-13 21:51 | Emergency (ER) | payer OTHER ==
[~2019-05-13] VITALS: Ht 144.8 cm; Wt 56.7 kg
[~2019-05-13 21:51] MED LIST changes: +ACET325 PO; +CARDIZEM CD PO; +DIABETIC S100 MG/5 M PO; +FURO80 PO; +HYDCOR2.5C UD; +K-Dur20 MEQ PO; +LANOXIN250 MC1 PO; +LEVO750 PO; +METO25ER PO; +Vsl#3 Capsule1 EACH PO
[2019-05-13 23:08] LABS: BASOPHILS ABSOLUTE AUTO 0.03 K/mm3 (0.00-0.23); BASOPHILS PERCENT AUTO 1 % (0-2); EOSINOPHILS PERCENT AUTO 2 % (0-6); Hematocrit 31.5 % (33.0-51.0); Hemoglobin 10.5 g/dL (11.5-16.0); IMMATURE GRAN ABSOLUTE AUTO 0.22 K/mm3 (0.00-0.10); IMMATURE GRAN PERCENT AUTO 4 % (0-1); LYMPHOCYTES ABSOLUTE AUTO 1.07 K/mm3 (0.84-5.20); LYMPHOCYTES PERCENT AUTO 18 % (21-46); MONOCYTES ABSOLUTE AUTO 0.68 K/mm3 (0.16-1.47); MONOCYTES PERCENT AUTO 12 % (4-13); Mean Corpuscular HGB 31.3 pg (26.0-34.0); Mean Corpuscular HGB Conc 33.3 g/dL (31.5-36.5); Mean Corpuscular Volume 94 fL (80-100); Mean Platelet Volume 9.3 fL (9.1-12.4); NEUTROPHILS ABSOLUTE AUTO 3.74 K/mm3 (1.96-9.15); NEUTROPHILS PERCENT AUTO 64 % (41-73); Platelet Count 481 K/mm3 (150-400); RDW Coefficient Variation 14.2 % (11.7-14.2); Red Blood Cell Count 3.35 M/mm3 (3.80-5.20); White Blood Cell Count 5.84 K/mm3 (4.00-11.30)
[2019-05-13 23:24] LABS: Alanine Aminotransfer (ALT/SGP 50 U/L (12-78); Albumin/Globulin Ratio 0.4 (0.8-1.8); Alk Phos 173 U/L (50-136); Anion Gap 8 mmol/L (6-16); Aspartate Aminotrans (AST/SGOT 32 U/L (12-37); Bilirubin, Total 0.2 mg/dL (0.1-1.0); Blood Urea Nitrogen 10 mg/dL (8-24); CO2, Blood 26 mmol/L (21-32); Calcium, Blood 7.7 mg/dL (8.5-10.1); Chloride, Blood 93 mmol/L (98-108); Creatinine, Blood 0.45 mg/dL (0.40-1.00); Globulin, Blood 4.5 g/dL (2.2-4.0); Glomerular Filtration Rate >60 (60-); Glucose, Blood 119 mg/dL (70-99); Potassium, Blood 3.5 mmol/L (3.5-5.5); Sodium, Blood 127 mmol/L (136-145); Total Protein, Blood 6.5 g/dL (6.4-8.2)
[2019-07-06] MEDS ORDERED: Aspirin EC81 MG PO (11:13)
[2019-07-06] MEDS ORDERED: Pravachol40 MG PO (11:14)
[2019-07-06] MEDS ORDERED: LISI20 PO (11:14)
[2019-07-06] MEDS ORDERED: VITAMIN D32000 UNI1 PO (11:15)
[2019-07-06] MEDS ORDERED: Flonase 0.05% N16 GM (11:15)
[2019-07-06] MEDS ORDERED: PROAIR RESPICL90 MCG INH (11:15)
[2019-07-06] MEDS ORDERED: Colace100 MG PO (11:16)
[2019-07-06] MEDS ORDERED: DIGOX250 MCG PO (11:17)
[2019-07-06] MEDS ORDERED: PANT40 PO (11:17)
[2019-07-06] MEDS ORDERED: HYDHCL25 PO (11:17)
[2019-07-06] MEDS ORDERED: DILTIAZEM 24HR240 M2 PO (11:18)
[2019-07-06] MEDS ORDERED: METO25ER PO (11:18)
[2019-07-06] MEDS ORDERED: HYDR1TAB94 PO (11:22)
[2019-07-06] MEDS ORDERED: PRINIVIL10 MG PO (11:23)
== END 2019-05-14 01:12 | disposition home or self-care (01) ==
LOC: ER 21:51
PROVIDERS: Physician Assistant
DX: G45.9 Transient cerebral ischemic attack, unspecified (principal); Z88.8 Allergy status to other drugs, medicaments and biological substances; Z79.899 Other long term (current) drug therapy; F17.200 Nicotine dependence, unspecified, uncomplicated
CPT/HCPCS: 36415; 70450; 80053; 85025; 93005; 93010; 99284-25

== ENCOUNTER 2019-05-29 22:04 | Emergency (ER) | payer OTHER ==
[~2019-05-29] VITALS: Ht 144.8 cm; Wt 52.6 kg
[2019-07-06] MEDS ORDERED: Aspirin EC81 MG PO (11:13)
[2019-07-06] MEDS ORDERED: LISI20 PO (11:14)
[2019-07-06] MEDS ORDERED: Pravachol40 MG PO (11:14)
[2019-07-06] MEDS ORDERED: Flonase 0.05% N16 GM (11:15)
[2019-07-06] MEDS ORDERED: PROAIR RESPICL90 MCG INH (11:15)
[2019-07-06] MEDS ORDERED: VITAMIN D32000 UNI1 PO (11:15)
[2019-07-06] MEDS ORDERED: Colace100 MG PO (11:16)
[2019-07-06] MEDS ORDERED: DIGOX250 MCG PO (11:17)
[2019-07-06] MEDS ORDERED: PANT40 PO (11:17)
[2019-07-06] MEDS ORDERED: HYDHCL25 PO (11:17)
[2019-07-06] MEDS ORDERED: METO25ER PO (11:18)
[2019-07-06] MEDS ORDERED: DILTIAZEM 24HR240 M2 PO (11:18)
[2019-07-06] MEDS ORDERED: HYDR1TAB94 PO (11:22)
[2019-07-06] MEDS ORDERED: PRINIVIL10 MG PO (11:23)
== END 2019-05-29 22:45 | disposition home or self-care (01) ==
LOC: ER 22:04
DX: Z01.30 Encounter for examination of blood pressure without abnormal findings (principal); F17.200 Nicotine dependence, unspecified, uncomplicated; I10 Essential (primary) hypertension; Z79.899 Other long term (current) drug therapy
CPT/HCPCS: 99284

== ENCOUNTER 2019-07-12 07:11 | Day surgery (SDC) | payer OTHER ==
[~2019-07-12] VITALS: Ht 144.8 cm; Wt 56.0 kg
[~2019-07-12 07:11] MED LIST changes: +Aspirin EC81 MG PO; +Colace100 MG PO; +DIGOX250 MCG PO; +DILTIAZEM 24HR240 M2 PO; +Flonase 0.05% N16 GM; +HYDHCL25 PO; +HYDR1TAB94 PO; +PRINIVIL10 MG PO; +PROAIR RESPICL90 MCG INH; +Pravachol40 MG PO; +VITAMIN D32000 UNI1 PO
--- NOTE | 2019-07-12 08:29 | NUR ---
07/12/19 0829 Ana Lilia Calderon 1 IV MISS IN RH BY ALEJANDRA VALVE 1 MISSED IV IN RW BY ALEJANDRA VALVE 1 MISSED IV IN RFA BY RN 1 GOOD IV IN LH BY RN PT TOW
== END 2019-07-12 09:52 | disposition home or self-care (01) ==
LOC: ORSCSDS 07:11
PROVIDERS: Internal Medicine Gastroenterology
PROC: 0DB68ZX Excision of Stomach, Via Natural or Artificial Opening Endoscopic, Diagnostic (ICD-10-PCS; principal; 2019-07-12 09:00)
DX: K62.5 Hemorrhage of anus and rectum (principal); K44.9 Diaphragmatic hernia without obstruction or gangrene; Z87.11 Personal history of peptic ulcer disease; Z86.73 Personal history of transient ischemic attack (TIA), and cerebral infarction without residual deficits; I10 Essential (primary) hypertension; E78.5 Hyperlipidemia, unspecified; E87.6 Hypokalemia; D64.9 Anemia, unspecified; E87.1 Hypo-osmolality and hyponatremia; Z79.82 Long term (current) use of aspirin; Z79.899 Other long term (current) drug therapy
CPT/HCPCS: 88305; 88342; J2250; J2704; J7120

== ENCOUNTER → 2021-06-24 | Outpatient (CLI) | payer OTHER ==
[2021-06-24 13:56] LABS: Source, Urine Clean Catch
[2021-06-24 16:09] LABS: Appearance, Urine Hazy (Clear); Blood, Urine 1+ (Neg); Color, Urine Amber (P-Yellow); Glucose Qualitative, Urine Neg (Neg); Ketones, Urine Neg (Neg); Leukocyte Esterase, Urine 3+ (Neg); Nitrite, Urine Pos (Neg); Protein, Urine 1+ (Neg); Urobilinogen, Urine 2+ (Normal)
[2021-06-24 16:45] LABS: Bilirubin, Urine 1+ (Neg)
[2021-06-24 16:48] LABS: Bacteria Many /hpf; Red Blood Cells, Urine 0-2 /hpf (0-2); Squamous Epithelial Cells Many /hpf (Few); White Blood Cells, Urine 50-100 /hpf (0-5)
== END | disposition home or self-care (01) ==
LOC: LAB SHORT 13:15 → LAB 13:15
PROVIDERS: Family Medicine
DX: N39.0 Urinary tract infection, site not specified (principal)
CPT/HCPCS: 81001; 87077; 87086; 87186

== ENCOUNTER 2021-09-30 20:50 | Inpatient (IN) | payer OTHER ==
[~2021-09-30] VITALS: Ht 144.8 cm; Wt 65.8 kg
[2021-09-30 21:38] LABS: Alanine Aminotransfer (ALT/SGP 197 U/L (12-78); Albumin, Blood 1.8 g/dL (3.4-5.0); Albumin/Globulin Ratio 0.5 (0.8-1.8); Alk Phos 649 U/L (50-136); Anion Gap 12 mmol/L (6-16); Aspartate Aminotrans (AST/SGOT 597 U/L (12-37); Bilirubin, Total 13.2 mg/dL (0.1-1.0); Blood Urea Nitrogen 9 mg/dL (8-24); Bun/Creatinine Ratio 9.7 (12.0-20.0); CO2, Blood 14 mmol/L (21-32); Calcium, Blood 7.5 mg/dL (8.5-10.1); Chloride, Blood 77 mmol/L (98-108); Creatinine, Blood 0.93 mg/dL (0.40-1.00); Ethanol (Alcohol), Blood, Med <3 mg/dL; Globulin, Blood 3.9 g/dL (2.2-4.0); Glomerular Filtration Rate >60 (60-); Glucose, Blood 85 mg/dL (70-99); Magnesium, Blood 1.3 mg/dL (1.6-2.4); Phosphorus, Blood 2.3 mg/dL (2.5-4.9); Potassium, Blood 5.4 mmol/L (3.5-5.5); Total Protein, Blood 5.7 g/dL (6.4-8.2)
[2021-09-30 21:40] LABS: Sodium, Blood 103 mmol/L (136-145)
[2021-09-30 21:58] LABS: BASOPHILS PERCENT AUTO 0 % (0-2); EOSINOPHILS ABSOLUTE AUTO 0.04 K/mm3 (0.00-0.68); EOSINOPHILS PERCENT AUTO 1 % (0-6); IMMATURE GRAN PERCENT AUTO 1 % (0-1); LYMPHOCYTES ABSOLUTE AUTO 0.84 K/mm3 (0.84-5.20); LYMPHOCYTES PERCENT AUTO 10 % (21-46); MONOCYTES ABSOLUTE AUTO 0.45 K/mm3 (0.16-1.47); MONOCYTES PERCENT AUTO 5 % (4-13); Mean Corpuscular HGB Conc 37.5 g/dL (31.5-36.5); Mean Corpuscular Volume 88 fL (80-100); Mean Platelet Volume 11.9 fL (9.1-12.4); NEUTROPHILS ABSOLUTE AUTO 7.35 K/mm3 (1.96-9.15); NEUTROPHILS PERCENT AUTO 84 % (41-73); NRBC ABSOLUTE 0.06 K/mm3 (0.00-0.02); NRBC Auto 0.7 /100 WBC (0.0-0.2); Platelet Count 91 K/mm3 (150-400); RDW Coefficient Variation 16.5 % (11.7-14.2); RDW Standard Deviation 50.9 fL (35.1-46.3); Red Blood Cell Count 1.82 M/mm3 (3.80-5.20); White Blood Cell Count 8.78 K/mm3 (4.00-11.30)
--- NOTE | 2021-10-01 02:00 | NUR ---
PATIENT ARRIVED TO UNIT FROM ED/CT
[2021-10-01 05:31] LABS: SARS-Cov-2 (COVID-19) PCR, MMC NEGATIVE (NEGATIVE)
--- NOTE | 2021-10-01 06:41 | NUR ---
PT BELONGINGS PT SON SARA TOOK PT NECKLACE HOME. PT CLOTHS AND SHOES WENT WITH PT TO ICU.
--- NOTE | 2021-10-01 07:56 | NUR ---
ASSUMED CARE AFTER RECEIVING REPORT PT STARTED DESATURATING, RESTLESS AND COMPLAINING OF FEELING SHORT OF BREATH . ON 4L/NC HER SPO2 WAS 80%. PT WAS MOSTLY MOUTH BREATHING SO MOVED CANNULA TO MOUTH WITH MINIMAL IMPROVEMENT. SWITCHED TO OXIMIZER AT 10L AND SPO2 STILL ONLY MID 80S SO PLACED PT ON NON-REBREATHER. AFTER ABOUT 5 MINUTES ON NON-REBREATHER PT'S SATS REACHED 90%. AFTER ABOUT 20 MINUTES ON NON-REBREATHER PT WAS SATURATING 100% SO SWITCHED BACK TO OXYMIZER AT 10L AND PT CURRENTLY 99%. WHILE PT WAS RECOVERING DR. SPAULDING NOTIFIED OF PT'S INCREASED OXYGEN DEMANDS, COARSE LUNG SOUNDS, AND THAT PT WAS ALSO FOUND WITH SMALL AMT OF BLOOD IN THE CORNER OF HER MOUTH. DR. SPAULDING ORDERED CXR, PRESSER AND SHAPER KNITTED GOODS CONSULT, AND GI CONSULT. DR. ZULETA NOTIFIED.
[2021-10-01 09:23] LABS: BASOPHILS PERCENT AUTO 0 % (0-2); EOSINOPHILS ABSOLUTE AUTO 0.02 K/mm3 (0.00-0.68); EOSINOPHILS PERCENT AUTO 0 % (0-6); Hematocrit 18.4 % (33.0-51.0); Hemoglobin 6.9 g/dL (11.5-16.0); IMMATURE GRAN PERCENT AUTO 1 % (0-1); LYMPHOCYTES ABSOLUTE AUTO 0.69 K/mm3 (0.84-5.20); LYMPHOCYTES PERCENT AUTO 9 % (21-46); MONOCYTES ABSOLUTE AUTO 0.41 K/mm3 (0.16-1.47); MONOCYTES PERCENT AUTO 5 % (4-13); Mean Corpuscular HGB 31.9 pg (26.0-34.0); Mean Corpuscular HGB Conc 37.5 g/dL (31.5-36.5); Mean Corpuscular Volume 85 fL (80-100); Mean Platelet Volume 13.2 fL (9.1-12.4); NEUTROPHILS ABSOLUTE AUTO 6.75 K/mm3 (1.96-9.15); NEUTROPHILS PERCENT AUTO 85 % (41-73); NRBC ABSOLUTE 0.06 K/mm3 (0.00-0.02); NRBC Auto 0.8 /100 WBC (0.0-0.2); Platelet Count 136 K/mm3 (150-400); RDW Coefficient Variation 15.7 % (11.7-14.2); RDW Standard Deviation 47.4 fL (35.1-46.3); Red Blood Cell Count 2.16 M/mm3 (3.80-5.20); White Blood Cell Count 7.97 K/mm3 (4.00-11.30)
[2021-10-01 09:39] LABS: Hematocrit 18.2 % (33.0-51.0)
[2021-10-01 09:41] LABS: Hemoglobin 6.9 g/dL (11.5-16.0)
[2021-10-01 09:59] LABS: Alanine Aminotransfer (ALT/SGP 172 U/L (12-78); Albumin, Blood 2.3 g/dL (3.4-5.0); Albumin/Globulin Ratio 0.6 (0.8-1.8); Alk Phos 556 U/L (50-136); Anion Gap 10 mmol/L (6-16); Aspartate Aminotrans (AST/SGOT 507 U/L (12-37); Bilirubin, Total 12.9 mg/dL (0.1-1.0); Blood Urea Nitrogen 7 mg/dL (8-24); Bun/Creatinine Ratio 9.9 (12.0-20.0); CO2, Blood 15 mmol/L (21-32); Chloride, Blood 85 mmol/L (98-108); Creatinine, Blood 0.71 mg/dL (0.40-1.00); Globulin, Blood 3.6 g/dL (2.2-4.0); Glomerular Filtration Rate >60 (60-); Glucose, Blood 119 mg/dL (70-99); Potassium, Blood 5.3 mmol/L (3.5-5.5); Sodium, Blood 110 mmol/L (136-145); Total Protein, Blood 5.9 g/dL (6.4-8.2)
[2021-10-01 10:36] LABS: Appearance, Urine Cloudy (Clear); Color, Urine Amber (P-Yellow); Leukocyte Esterase, Urine 1+ (Neg); Source, Urine Catheter; Specific Gravity, Urine 1.015 (1.003-1.022)
[2021-10-01 10:37] LABS: Bilirubin, Urine 3+ (Neg); Blood, Urine 5+ (Neg); Glucose Qualitative, Urine Neg (Neg); Ketones, Urine 1+ (Neg); Nitrite, Urine Neg (Neg); Protein, Urine 2+ (Neg); Urobilinogen, Urine 2+ (Normal)
[2021-10-01 10:38] LABS: Amorphous Mod (0-Heavy); Bacteria Mod /hpf; Red Blood Cells, Urine 0-2 /hpf (0-2); Squamous Epithelial Cells Few /hpf (Few)
[2021-10-01 10:39] LABS: Granular Casts Rare /lpf (0)
--- NOTE | 2021-10-01 10:55 | NUR ---
CENTRAL LINE PLACEMENT AFTER DRAWING BLOOD FROM R FEMORAL LINE BLOOD WAS NOTED TO BE PULSATING IN THE BROWN AND NAVA LINES. DR. ZULETA NOTIFIED AND EVALUATED THE LINE WITH ULTRASOUND AND LINE WAS TRANSDUCED. R FEMORAL LINE HAD AN ARTERIAL WAVEFORM SO DR. ZULETA DECIDED TO PLACE CENTRAL LINE IN L FEMORAL. ALL MEDICATIONS MOVED TO L SIDE AND R SIDE LEFT ARTERIAL LINE. BOTH PEDAL PULSES ARE ONLY FOUDN WITH DOPPLER BUT R SIDE IS FAINTER THAN L SO MONITORING CLOSELY.
[2021-10-01 11:29] LABS: U Amphetamine Screen Not Detected; U Barbituate Screen Not Detected; U Benzodiazapine Screen Not Detected; U Buprenorphine Screen Not Detected; U Cannabinoids Screen Not Detected; U Cocaine Screen Not Detected; U Methadone Screen Not Detected; U Methamphetamine Screen Not Detected; U Opiates Screen DETECTED; U Oxycodone Screen Not Detected; U Phencyclidine Screen Not Detected; U Propoxyphene Screen Not Detected
[2021-10-01 12:06] LABS: Iron Serum 109 ug/dL (50-170); Percent Saturation 75.2 % (15.0-50.0); Total Iron Binding Capacity 145 ug/dL (250-450)
[2021-10-01 12:13] LABS: Anion Gap 15 mmol/L (6-16); Blood Urea Nitrogen 7 mg/dL (8-24); Bun/Creatinine Ratio 9.9 (12.0-20.0); CO2, Blood 12 mmol/L (21-32); Calcium, Blood 6.6 mg/dL (8.5-10.1); Chloride, Blood 85 mmol/L (98-108); Creatinine, Blood 0.71 mg/dL (0.40-1.00); Ferritin, Serum 3892 ng/mL (8-252); Glomerular Filtration Rate >60 (60-); Glucose, Blood 215 mg/dL (70-99); Potassium, Blood 4.2 mmol/L (3.5-5.5); Sodium, Blood 112 mmol/L (136-145)
--- NOTE | 2021-10-01 17:32 | NUR ---
SHIFT SUMMARY PT HAS CONTINUED TO NEED INCREASED OXYGEN TODAY, BUT HAS TOLERATED JASMINA OXYMIZER AT 8L THIS AFTERNOON TO MAINTAIN SPO2 IN THE MID 90S. HER LUGNS ARE STILL COARSE AND SHE HAS A WEAK, CONGESTED SOUNDING COUGH. SHE HAS BEEN SLEEPING THIS AFTERNOON, WAKES EASILY TO HER NAME AND WAS ABLE TO SAY SHE IS IN THE HOSPITAL, BUT THOUGHT SHE WAS IN [place]. SHE IS SR, STILL REQUIRING LEVOPHED TO KEEP MAP ABOVE 60. PEDAL PULSES IN RLE STILL VERY WEAK, BUT THE FOOT'S COLOR IS IMPROVED FROM THIS MORNING AND CAP REFILL IS <3 SECONDS. ABD REMAINS DISTENDED, NO STOOL TODAY. KIRAN WITH TEA COLORED URINE AND SMALL AMT OF SEDIMENT. PT RECEIVED 2 UNITS OF PRBC AND TOLERATED THEM WELL. PT'S SON CAME BY THIS AFTERNOON AND WAS UPDATED BY NURSING STAFF AND .
[2021-10-01 17:36] LABS: Hematocrit 24.6 % (33.0-51.0); Hemoglobin 9.1 g/dL (11.5-16.0)
[2021-10-01 17:40] LABS: Anion Gap 9 mmol/L (6-16); Blood Urea Nitrogen 7 mg/dL (8-24); Bun/Creatinine Ratio 9.7 (12.0-20.0); CO2, Blood 17 mmol/L (21-32); Calcium, Blood 6.6 mg/dL (8.5-10.1); Chloride, Blood 86 mmol/L (98-108); Creatinine, Blood 0.72 mg/dL (0.40-1.00); Glomerular Filtration Rate >60 (60-); Glucose, Blood 227 mg/dL (70-99); Potassium, Blood 4.1 mmol/L (3.5-5.5); Sodium, Blood 112 mmol/L (136-145)
[2021-10-01 17:56] LABS: International Normalized Ratio 1.75; Prothrombin Time Results 17.7 Sec (9.7-11.5)
[2021-10-02 00:11] LABS: Hematocrit 25.7 % (33.0-51.0); Hemoglobin 9.6 g/dL (11.5-16.0)
[2021-10-02 00:30] LABS: Anion Gap 9 mmol/L (6-16); Blood Urea Nitrogen 6 mg/dL (8-24); Bun/Creatinine Ratio 8.7 (12.0-20.0); CO2, Blood 16 mmol/L (21-32); Calcium, Blood 6.2 mg/dL (8.5-10.1); Chloride, Blood 88 mmol/L (98-108); Creatinine, Blood 0.69 mg/dL (0.40-1.00); Glomerular Filtration Rate >60 (60-); Glucose, Blood 217 mg/dL (70-99); Potassium, Blood 3.9 mmol/L (3.5-5.5)
[2021-10-02 00:32] LABS: Sodium, Blood 113 mmol/L (136-145)
--- NOTE | 2021-10-02 05:03 | NUR ---
DR. HAMILTON NOTIFIED OF VBG RESULTS
[2021-10-02 05:51] LABS: PCO2 Arterial 36.1 mmHg (35-45); PO2 Arterial 85.9 mmHg (80-100); pH Blood Arterial 7.22 (7.35-7.45)
--- NOTE | 2021-10-02 06:27 | NUR ---
END OF SHIFT SUMMARY: - LEVO AT 23, VASO GTT BACK ON AT 0.04, (PROTONIX, OCREOTIDE, AND FLUIDS REMAINO ON, NO CHANGES) - PATIENT REMAINS CONFUSED, ORIENTED TO SELF AND HOSPITAL - DOES NOT KNOW LOCATION, DATE, OR WHY SHE IS HERE - NA INCREASE TO 113 FROM 112. HGB INCREASE FROM 9.1 TO 9.6., ABG PH CRITICAL AT 7.22 (DR. HAMILTON NOTIFIED) - TWO SMALL/SMEAR BMS LAST NIGHT - BROWN/GREEN LIQUID/LOOSE - KIRAN OUTPUT LOW AT 260ML FOR THE WHOLE SHIFT, URINE IS BLOODY/TEA COLOR, PATIENT COMPLAINS OF PAIN/TENDERNESS TO PERINEAL AREA WHEN CLEANING - PATIENT O2 NEED INCREASED FROM 8L ON OXYMIZER TO 15L VENTI MASK. PATIENT COUGHING, WEAK COUGH - NONPRODUCTIVE.
[2021-10-02 06:30] LABS: Hematocrit 24.5 % (33.0-51.0)
[2021-10-02 06:31] LABS: Hemoglobin 9.2 g/dL (11.5-16.0)
[2021-10-02 12:29] LABS: Hematocrit 23.8 % (33.0-51.0)
[2021-10-02 12:49] LABS: Alanine Aminotransfer (ALT/SGP 156 U/L (12-78); Albumin, Blood 1.9 g/dL (3.4-5.0); Albumin/Globulin Ratio 0.6 (0.8-1.8); Alk Phos 392 U/L (50-136); Aspartate Aminotrans (AST/SGOT 291 U/L (12-37); Bilirubin, Total 14.8 mg/dL (0.1-1.0); Blood Urea Nitrogen 6 mg/dL (8-24); Bun/Creatinine Ratio 8.2 (12.0-20.0); CO2, Blood 16 mmol/L (21-32); Calcium, Blood 6.4 mg/dL (8.5-10.1); Chloride, Blood 90 mmol/L (98-108); Creatinine, Blood 0.74 mg/dL (0.40-1.00); Globulin, Blood 3.3 g/dL (2.2-4.0); Glomerular Filtration Rate >60 (60-); Glucose, Blood 162 mg/dL (70-99); Potassium, Blood 3.7 mmol/L (3.5-5.5); Total Protein, Blood 5.2 g/dL (6.4-8.2)
[2021-10-02 12:51] LABS: Anion Gap 10 mmol/L (6-16); Sodium, Blood 116 mmol/L (136-145)
--- NOTE | 2021-10-02 20:00 | NUR ---
BOWEL CARE HELD D/T NPO AND RECENT LIQUID/LOOSE BM
--- NOTE | 2021-10-02 22:00 | NUR ---
WOUND CARE APPLIED WOUNDS TO BILATERAL BUTTOCKS BILATERAL GROIN/THIGH UNDERNEATH PANIS
--- NOTE | 2021-10-03 02:00 | NUR ---
WOUND CARE APPLIED TO ALL WOUNDS: CLEANSING WITH WATER AND APPLICATION OF OINTMENT AT BEDSIDE BILATERAL BUTTOCKS HAS PURULENT AND BLOODY DRAINAGE BILATERAL GROIN/INNER THIGH HAS BLOODY DRAINAGE UNDERNEATH PANNIS HAS PURULENT AND SEROUS DRAINAGE
[2021-10-03 04:37] LABS: Magnesium, Blood 1.5 mg/dL (1.6-2.4)
[2021-10-03 04:49] LABS: Alanine Aminotransfer (ALT/SGP 145 U/L (12-78); Albumin, Blood 1.9 g/dL (3.4-5.0); Albumin/Globulin Ratio 0.5 (0.8-1.8); Alk Phos 342 U/L (50-136); Anion Gap 11 mmol/L (6-16); Aspartate Aminotrans (AST/SGOT 198 U/L (12-37); Bilirubin, Total 15.2 mg/dL (0.1-1.0); Blood Urea Nitrogen 6 mg/dL (8-24); Bun/Creatinine Ratio 8.2 (12.0-20.0); CO2, Blood 17 mmol/L (21-32); Calcium, Blood 7.5 mg/dL (8.5-10.1); Chloride, Blood 91 mmol/L (98-108); Creatinine, Blood 0.73 mg/dL (0.40-1.00); Globulin, Blood 3.5 g/dL (2.2-4.0); Glomerular Filtration Rate >60 (60-); Glucose, Blood 143 mg/dL (70-99); Phosphorus, Blood 1.5 mg/dL (2.5-4.9); Potassium, Blood 3.5 mmol/L (3.5-5.5); Sodium, Blood 119 mmol/L (136-145); Total Protein, Blood 5.4 g/dL (6.4-8.2)
[2021-10-03 05:12] LABS: Hematocrit 23.2 % (33.0-51.0); Mean Corpuscular Volume 84 fL (80-100); Mean Platelet Volume 11.1 fL (9.1-12.4); NRBC ABSOLUTE 0.06 K/mm3 (0.00-0.02); NRBC Auto 0.8 /100 WBC (0.0-0.2); Platelet Count 69 K/mm3 (150-400); RDW Coefficient Variation 15.6 % (11.7-14.2); RDW Standard Deviation 45.6 fL (35.1-46.3); Red Blood Cell Count 2.76 M/mm3 (3.80-5.20); White Blood Cell Count 7.79 K/mm3 (4.00-11.30)
[2021-10-03 05:20] LABS: Hemoglobin 8.8 g/dL (11.5-16.0); Mean Corpuscular HGB 31.9 pg (26.0-34.0); Mean Corpuscular HGB Conc 37.9 g/dL (31.5-36.5)
[2021-10-03 06:09] LABS: BAND PERCENT MAN 4 % (0-8); BASOPHILS PERCENT MAN 0 % (0-2); EOSINOPHILS ABSOLUTE MAN 0.07 K/mm3 (0.00-0.68); EOSINOPHILS PERCENT MAN 1 % (0-6); LYMPHOCYTES ABSOLUTE MAN 0.54 K/mm3 (0.84-5.20); LYMPHOCYTES PERCENT MAN 7 % (21-46); MONOCYTES ABSOLUTE MAN 0.15 K/mm3 (0.16-1.47); MONOCYTES PERCENT MAN 2 % (4-13); NEUTROPHILS ABSOLUTE MAN 7.01 K/mm3 (1.96-9.15); SEG NEUTROPHILS PERCENT MAN 86 % (41-73); TOTAL CELLS COUNTED 100
--- NOTE | 2021-10-03 06:22 | NUR ---
DR. MOORE CALLED BACK - NOTIFIED OF CRITICAL POTASSIUM 2.4 - ORDER TO PLACE 60 MEQ IV X1
--- NOTE | 2021-10-03 06:55 | NUR ---
END OF SHIFT SUMMARY: - WOUND CARE PROVIDED X3 OVERNIGHT FOR PURULENT, SEROUS, AND BLOODY DRAINAGE. - VASO RESTARTED OVERNIGHT AND OFF AGAIN AT 0633 - LEVO NOW AT 9 - BM AGAIN OVERNIGHT - NO BLOOD, NOT BLACK STOOL: CHARACTERISTICS INCLUDE GREEN, SOFT/LOOSE, SMALL - URINE CONTINUES TO BE BLOODY - NA INCREASE FROM PREVIOUS LABS - PLATELETES LOW 0633 0
[2021-10-03 16:26] LABS: Magnesium, Blood 2.2 mg/dL (1.6-2.4)
[2021-10-03 16:29] LABS: Thyroid Stimulating Hormone 0.168 uIU/mL (0.360-4.800)
[2021-10-03 16:32] LABS: Anion Gap 6 mmol/L (6-16); Blood Urea Nitrogen 5 mg/dL (8-24); Bun/Creatinine Ratio 6.4 (12.0-20.0); CO2, Blood 20 mmol/L (21-32); Calcium, Blood 8.2 mg/dL (8.5-10.1); Chloride, Blood 92 mmol/L (98-108); Creatinine, Blood 0.78 mg/dL (0.40-1.00); Glomerular Filtration Rate >60 (60-); Glucose, Blood 116 mg/dL (70-99); Phosphorus, Blood 2.2 mg/dL (2.5-4.9); Potassium, Blood 3.6 mmol/L (3.5-5.5); Sodium, Blood 118 mmol/L (136-145)
--- NOTE | 2021-10-03 19:02 | NUR ---
Pt recieved on bed AAOX2, but remains confused. She can follow commands and move all extremities. Assessment done; pt has wounds on buttucks and perineal area. Dr. Guerrero and Dr. Green @ bedside assessed pt and notified. Order recieved. 1500 Family updated on status of pt and pericare done. CVC line change and pt reposition. Pt afebrile, VSS and in no acute distress. 190 Report given to BETO Mills.
--- NOTE | 2021-10-03 20:54 | NUR ---
E-LYTE PO PILL HELD/NOT GIVEN D/T NPO D/T FAILED SWALLOW SCREEN X2 BY RN
--- NOTE | 2021-10-03 22:00 | NUR ---
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 Bloody drainage has decreased compared to previous adjunct philosophy faculty. Cross/yellow drainage has decreased compared to previous adjunct philosophy faculty. All wounds are raw/macerated and appear to be from moisture breakdown. All wounds are extremily sensity to touch. (No PRN pain medications ordered.) All wounds cleansed with water and wipes and calazime cream applied. Consider wound consult?
--- NOTE | 2021-10-04 02:00 | NUR ---
Wound care to all wounds: cleaned with water and wipes, applied calazime cream
--- NOTE | 2021-10-04 04:00 | NUR ---
Arterial line dressing changed. Central line dressing changed, caps changed.
[2021-10-04 05:58] LABS: Alanine Aminotransfer (ALT/SGP 135 U/L (12-78); Albumin, Blood 1.8 g/dL (3.4-5.0); Albumin/Globulin Ratio 0.5 (0.8-1.8); Alk Phos 303 U/L (50-136); Anion Gap 11 mmol/L (6-16); Aspartate Aminotrans (AST/SGOT 135 U/L (12-37); Bilirubin, Total 19.1 mg/dL (0.1-1.0); Blood Urea Nitrogen 6 mg/dL (8-24); Bun/Creatinine Ratio 9.2 (12.0-20.0); CO2, Blood 20 mmol/L (21-32); Calcium, Blood 8.2 mg/dL (8.5-10.1); Chloride, Blood 92 mmol/L (98-108); Creatinine, Blood 0.66 mg/dL (0.40-1.00); Globulin, Blood 3.6 g/dL (2.2-4.0); Glomerular Filtration Rate >60 (60-); Glucose, Blood 108 mg/dL (70-99); Magnesium, Blood 1.8 mg/dL (1.6-2.4); Phosphorus, Blood 2.7 mg/dL (2.5-4.9); Potassium, Blood 3.6 mmol/L (3.5-5.5); Sodium, Blood 123 mmol/L (136-145); Total Protein, Blood 5.4 g/dL (6.4-8.2)
--- NOTE | 2021-10-04 05:59 | NUR ---
End of shift summary: - SR. Levo gtt decreased to 5 currently. NBP consistently agrees with arterial line. Possible removal of arterial line?? No fevers. Patient runs cool with temp in 96sF. Given warm blankets. - drowsy and oriented to self only. States she thinks she is at home. Does not know date. Able to follow commands and move all extremities x4 although strength is weak and ROM is stiff on BLE. Patient has difficulty relaxing for BLE passive ROM exercises. PT consult? - Rhonchi and wheezes. Snores. 02 decreased to NC 4LPM. - NPO. failed swallow study again tonight with RN. No NG for TF. (Patient continuously picks and pulls at clothing, blankets, pulse ox even in her sleep, RN opinion is that placing NG would require restraints and more pain and irriation to patient than what is already occuring... need for TPN??) - Díaz - urine continues to be bloody - adequate output - wounds have increased drainage, but appear more soothed with wound care - no PRN medications given, held PO med last night d/t failed swallow study - no labs yet received from morning draw.
[2021-10-04 06:19] LABS: BASOPHILS ABSOLUTE AUTO 0.01 K/mm3 (0.00-0.23); BASOPHILS PERCENT AUTO 0 % (0-2); EOSINOPHILS ABSOLUTE AUTO 0.07 K/mm3 (0.00-0.68); EOSINOPHILS PERCENT AUTO 1 % (0-6); Hematocrit 22.3 % (33.0-51.0); Mean Corpuscular Volume 84 fL (80-100); Mean Platelet Volume 11.2 fL (9.1-12.4); NRBC ABSOLUTE 0.06 K/mm3 (0.00-0.02); NRBC Auto 0.6 /100 WBC (0.0-0.2); Platelet Count 54 K/mm3 (150-400); RDW Coefficient Variation 15.2 % (11.7-14.2); RDW Standard Deviation 44.1 fL (35.1-46.3); Red Blood Cell Count 2.67 M/mm3 (3.80-5.20); White Blood Cell Count 9.66 K/mm3 (4.00-11.30)
[2021-10-04 06:20] LABS: Hemoglobin 8.5 g/dL (11.5-16.0); IMMATURE GRAN ABSOLUTE AUTO 0.11 K/mm3 (0.00-0.10); IMMATURE GRAN PERCENT AUTO 1 % (0-1); LYMPHOCYTES ABSOLUTE AUTO 0.61 K/mm3 (0.84-5.20); LYMPHOCYTES PERCENT AUTO 6 % (21-46); MONOCYTES ABSOLUTE AUTO 0.65 K/mm3 (0.16-1.47); MONOCYTES PERCENT AUTO 7 % (4-13); Mean Corpuscular HGB 31.8 pg (26.0-34.0); Mean Corpuscular HGB Conc 38.1 g/dL (31.5-36.5); NEUTROPHILS ABSOLUTE AUTO 8.21 K/mm3 (1.96-9.15); NEUTROPHILS PERCENT AUTO 85 % (41-73)
[2021-10-04 08:30] LABS: International Normalized Ratio 1.49; Prothrombin Time Results 15.2 Sec (9.7-11.5)
--- NOTE | 2021-10-04 10:57 | NUR ---
REPORTED TO DR ZULETA AND DR SPAULDING, PLT, SKIN, ART LINE, PAIN MEDS, AND NEW CL DRESSING. NEW ORDERS FOR A NICOTINE PATCH, FENTANYL, DC ARTLINE, RESTRAINTS ON FOR PATIENT SAFETY OF PULLING OUT LINES AND MENTAL CONFUSION AND FORGETFULNESS, CALL LIGHT WITH IN REACH, MAKES NEEDS KNOWN
--- NOTE | 2021-10-04 14:47 | NUR ---
ARTLINE REMOVED AT 1424, MANUAL PRESSURE HELD TELL 1441, AYLA DRSG TO SITE, TAGADERM, AND WEIGHT ON SITE, FENATNYL X2 12.5 MCG GIVEN FOR PAIN
--- NOTE | 2021-10-04 18:20 | NUR ---
PATIENT ALERT AND FORGETFUL, SPEECH CLEAR AND MUMBLED AT TIMES, SWALLOWED EASILY WITH HOB 90% AND ASSISTANCE, DIET FULL LIQUID, PATIENT PULLED OF CL DRSG AND SCRATCHED AT THE AREA, RESTRAINTS PLACED TO PROTECT LINES, LS COARSE, 4L NC SATS 98%, TELE NSR, KIRAN DARK DAVID URINE, SKIN PALE AND JAUNDICE, EXCORIATED FOLDS/BUTTOX/GROIN/BLEEDING NYSTATIN LOTION AND POWDER, REMOVED ART LINE, DRSG TAGDERM OLD BLOOD, PRESSURE HELD FOR 20 MINUTES AND WEIGHT BAG APPLIED, UNABLE TO EDUCATE OR REDIRECT PATIENT, ONLY ORIENTED TO SELF, SHORT TERM MEMORY LOSS, WILL RELAY TO PM RN
--- NOTE | 2021-10-04 20:44 | NUR ---
ASSUMED PT CARE AT 1915 PT SLEEPING SOUNDLY IN BED. EASILY AROUSABLE TO VERBAL STIMULI; HOWEVER, PT IS VERY MANZANITA. LEVOPHED INFUSING VIA CENTRAL LINE TO LEFT GROIN AT 5MCG/MIN, BICARB AT 50MLS/HR. PT IS ALERT TO SELF, SURROUNDINGS, AND CITY; SHE IS VERY CONFUSED AND REQUIRES FREQUENT CUEING AND 1-2 STEP DIRECTIONS/COMMANDS. PT IS VERY JAUNDICE IN COLOR; URINE IS DARK ORANGE/TEA COLORED. SHE HAS EXTENSIVE SCATTERED WOUNDS TO BILATERAL GROINS, VAIBHAV AREA, AND BUTTOCKS. SHE APPEARS TO HAVE A SENSITIVITY TO ADHESIVES BILATERAL GROIN SITES FROM CENTRAL AND ART LINE DRESSINGS APPEAR TO HAVE BLISTER LIKE WOUNDS THAT ARE VERY PAINFUL TO PATIENT. REDRESSED BOTH DRESSINGS D/T OOZING. RIGHT GROIN SITE POST ARTERIAL LINE REMOVAL REMAINS FREE OF HEMATOMA WITH JUST MINIMAL OOZING; NEW AYLA DRESSING APPLIED. ABDOMEN HAS SCATTERED RASH WELL. PT REMAINS ON 4L OF OXYGEN VIA NC WITH SPO2 96%. NSR WITH HR 80'S. BP'S STABLE AT THIS TIME, SEE FLOWSHEET. SEE SHIFT SUMMARY FOR FURTHER DETAILS.
[2021-10-05 04:03] LABS: Hematocrit 21.2 % (33.0-51.0); Mean Corpuscular Volume 84 fL (80-100); NRBC ABSOLUTE 0.07 K/mm3 (0.00-0.02); NRBC Auto 0.9 /100 WBC (0.0-0.2); RDW Coefficient Variation 15.9 % (11.7-14.2); Red Blood Cell Count 2.53 M/mm3 (3.80-5.20); White Blood Cell Count 7.87 K/mm3 (4.00-11.30)
[2021-10-05 04:06] LABS: Mean Corpuscular HGB 31.6 pg (26.0-34.0); Mean Corpuscular HGB Conc 37.7 g/dL (31.5-36.5)
[2021-10-05 04:07] LABS: Platelet Count 43 K/mm3 (150-400)
[2021-10-05 04:16] LABS: Alanine Aminotransfer (ALT/SGP 118 U/L (12-78); Albumin, Blood 1.7 g/dL (3.4-5.0); Albumin/Globulin Ratio 0.5 (0.8-1.8); Alk Phos 277 U/L (50-136); Anion Gap 4 mmol/L (6-16); Aspartate Aminotrans (AST/SGOT 89 U/L (12-37); Bilirubin, Total 19.4 mg/dL (0.1-1.0); Blood Urea Nitrogen 7 mg/dL (8-24); Bun/Creatinine Ratio 10.6 (12.0-20.0); CO2, Blood 28 mmol/L (21-32); Calcium, Blood 7.8 mg/dL (8.5-10.1); Chloride, Blood 95 mmol/L (98-108); Creatinine, Blood 0.66 mg/dL (0.40-1.00); Globulin, Blood 3.4 g/dL (2.2-4.0); Glomerular Filtration Rate >60 (60-); Glucose, Blood 121 mg/dL (70-99); Magnesium, Blood 1.6 mg/dL (1.6-2.4); Phosphorus, Blood 2.6 mg/dL (2.5-4.9); Potassium, Blood 3.4 mmol/L (3.5-5.5); Sodium, Blood 127 mmol/L (136-145); Total Protein, Blood 5.1 g/dL (6.4-8.2)
--- NOTE | 2021-10-05 05:25 | NUR ---
END OF SHIFT SUMMARY NO SIGNIFICANT CHANGES THIS SHIFT. PT REMAINS SLEEPING MOST OF SHIFT WITH OCCASIONAL HOLLERING OUT MOMENTS, WHICH ARE MOSTLY IN PART SECONDARY TO PT IN RESTRAINTS AND SHE WAKES UP THINKING SHE IS "STUCK". PT REDIRECTED AND REORIENTED TO WHY SHE IS IN BILATERAL WRIST RESTRAINTS; DURING BREAKS SHE STILL CONTINUES TO PULL AT LINES/CORDS AND TELEMETRY LEADS. TOILETING NEEDS ARE BEING MET VIA KIRAN CATHETER; PT WAS ATTEMPTED ON BED LOJA X1 THIS SHIFT WITH NO SUCCESS. SHE REMAINS ALERT TO SELF AND SURROUNDINGS; HOWEVER, REQUIRES A LOT OF REDIRECTION/CUEING. CHANGED DRESSING TO BUTTOCK X2 THIS SHIFT WITH GOAL TO KEEP AREA DRY. PLACED CALCIUM ALGINATE TO BILATERAL GROIN CREASES TO ALSO HELP COLLECT PREVENT MOISTURE. PT HAS BEEN ABLE TO SHIFT OWN WEIGHT/HIPS DESPITE RESTRAINTS. PLACED PILLOWS X2 WITH PT REMOVING THEM HERSELF. RIGHT GROIN SITE HAS REMAINED STABLE THIS SHIFT WITH NO OOZING OR HEMATOMA; AYLA DRESSING REMAINS DRY AND INTACT. WILL CONTINUE TO MONITOR UNTIL REPORT IS HANDED OFF TO ONCOMING RN.
[2021-10-05 06:05] LABS: BAND PERCENT MAN 6 % (0-8); BASOPHILS PERCENT MAN 0 % (0-2); EOSINOPHILS ABSOLUTE MAN 0.07 K/mm3 (0.00-0.68); EOSINOPHILS PERCENT MAN 1 % (0-6); LYMPHOCYTES ABSOLUTE MAN 0.55 K/mm3 (0.84-5.20); LYMPHOCYTES PERCENT MAN 7 % (21-46); METAMYELOCYTE ABSOLUTE MAN 0.07 K/mm3 (0.00-0.00); METAMYELOCYTE PERCENT MAN 1 % (0-0); MONOCYTES ABSOLUTE MAN 0.39 K/mm3 (0.16-1.47); MONOCYTES PERCENT MAN 5 % (4-13); NEUTROPHILS ABSOLUTE MAN 6.76 K/mm3 (1.96-9.15); SEG NEUTROPHILS PERCENT MAN 80 % (41-73)
[2021-10-05 06:07] LABS: TOTAL CELLS COUNTED 1002
--- NOTE | 2021-10-05 12:18 | NUR ---
0730 Pt recieved on bed disoriented but follow commands when awake. Pt is confused and get restless @ times. Assessment done; pt on NC @ 3L, tolerating well. Excoriations and red rash visible on perineal area and bilateral groins. Dr. Hawthorne aware and Wound Care team notified. Pt has Left Femoral CVC, dressing changed and site cleaned. Pt has pulido draining adequate orange/tea colored urine. Dr. Hawthorne seen and assessed pt; orders recieved. Pericare done and pt repositioned. Will monitor pt closely.
[2021-10-06 03:51] LABS: BASOPHILS ABSOLUTE AUTO 0.01 K/mm3 (0.00-0.23); BASOPHILS PERCENT AUTO 0 % (0-2); EOSINOPHILS ABSOLUTE AUTO 0.08 K/mm3 (0.00-0.68); EOSINOPHILS PERCENT AUTO 1 % (0-6); Hematocrit 20.9 % (33.0-51.0); Hemoglobin 7.8 g/dL (11.5-16.0); IMMATURE GRAN ABSOLUTE AUTO 0.25 K/mm3 (0.00-0.10); IMMATURE GRAN PERCENT AUTO 4 % (0-1); LYMPHOCYTES ABSOLUTE AUTO 0.74 K/mm3 (0.84-5.20); LYMPHOCYTES PERCENT AUTO 11 % (21-46); MONOCYTES ABSOLUTE AUTO 0.64 K/mm3 (0.16-1.47); MONOCYTES PERCENT AUTO 9 % (4-13); Mean Corpuscular HGB 31.7 pg (26.0-34.0); Mean Corpuscular HGB Conc 37.3 g/dL (31.5-36.5); Mean Corpuscular Volume 85 fL (80-100); Mean Platelet Volume 10.4 fL (9.1-12.4); NEUTROPHILS ABSOLUTE AUTO 5.14 K/mm3 (1.96-9.15); NEUTROPHILS PERCENT AUTO 75 % (41-73); NRBC ABSOLUTE 0.07 K/mm3 (0.00-0.02); RDW Coefficient Variation 16.2 % (11.7-14.2); RDW Standard Deviation 47.7 fL (35.1-46.3); Red Blood Cell Count 2.46 M/mm3 (3.80-5.20); White Blood Cell Count 6.86 K/mm3 (4.00-11.30)
[2021-10-06 04:00] LABS: Platelet Count 43 K/mm3 (150-400)
[2021-10-06 04:15] LABS: Alanine Aminotransfer (ALT/SGP 106 U/L (12-78); Albumin, Blood 1.6 g/dL (3.4-5.0); Albumin/Globulin Ratio 0.5 (0.8-1.8); Alk Phos 298 U/L (50-136); Anion Gap 5 mmol/L (6-16); Aspartate Aminotrans (AST/SGOT 79 U/L (12-37); Bilirubin, Total 18.2 mg/dL (0.1-1.0); Blood Urea Nitrogen 6 mg/dL (8-24); Bun/Creatinine Ratio 10.1 (12.0-20.0); CO2, Blood 30 mmol/L (21-32); Calcium, Blood 8.1 mg/dL (8.5-10.1); Chloride, Blood 100 mmol/L (98-108); Globulin, Blood 3.4 g/dL (2.2-4.0); Glomerular Filtration Rate >60 (60-); Glucose, Blood 107 mg/dL (70-99); Magnesium, Blood 1.6 mg/dL (1.6-2.4); Phosphorus, Blood 2.4 mg/dL (2.5-4.9); Potassium, Blood 3.2 mmol/L (3.5-5.5); Sodium, Blood 135 mmol/L (136-145)
--- NOTE | 2021-10-06 05:59 | NUR ---
SHIFT SUMMERY: NO ACUTE CHANGES IN PT CONDITION THIS SHIFT.
--- NOTE | 2021-10-06 17:47 | NUR ---
0800 Pt recieved on bed asleep, but arousable. Pt assessment done; pt able to move all extremities, follow commands and drink fluids. Pt is AAOX3 but gets confused @ times. Pt has redness, excoriated skin thats weeps on groin, buttucks and perineal area. Díaz noted draining adequate output. Pt has Left femoral CVC infusing Levo and Zosyn. 1000 Levo weaned off; pt tolerated well. OT worked with pt and pt OOB on chair, tolerating well. 1600 Pt had multiple BM's, pericare done. Pt VSS, afebrile and in no acute distress. Will continue to monitor pt until remainder of shift.
[2021-10-07 04:09] LABS: BASOPHILS ABSOLUTE AUTO 0.01 K/mm3 (0.00-0.23); BASOPHILS PERCENT AUTO 0 % (0-2); EOSINOPHILS PERCENT AUTO 2 % (0-6); Hemoglobin 7.4 g/dL (11.5-16.0); IMMATURE GRAN ABSOLUTE AUTO 0.46 K/mm3 (0.00-0.10); IMMATURE GRAN PERCENT AUTO 7 % (0-1); LYMPHOCYTES ABSOLUTE AUTO 0.98 K/mm3 (0.84-5.20); LYMPHOCYTES PERCENT AUTO 15 % (21-46); MONOCYTES ABSOLUTE AUTO 0.77 K/mm3 (0.16-1.47); MONOCYTES PERCENT AUTO 12 % (4-13); Mean Corpuscular HGB 32.2 pg (26.0-34.0); Mean Corpuscular Volume 87 fL (80-100); Mean Platelet Volume 11.4 fL (9.1-12.4); NEUTROPHILS ABSOLUTE AUTO 4.12 K/mm3 (1.96-9.15); NEUTROPHILS PERCENT AUTO 64 % (41-73); NRBC ABSOLUTE 0.09 K/mm3 (0.00-0.02); NRBC Auto 1.4 /100 WBC (0.0-0.2); RDW Coefficient Variation 16.9 % (11.7-14.2); RDW Standard Deviation 50.7 fL (35.1-46.3); White Blood Cell Count 6.44 K/mm3 (4.00-11.30)
[2021-10-07 04:11] LABS: Platelet Count 43 K/mm3 (150-400)
[2021-10-07 04:21] LABS: International Normalized Ratio 1.37; Prothrombin Time Results 14.1 Sec (9.7-11.5)
[2021-10-07 04:27] LABS: Alanine Aminotransfer (ALT/SGP 97 U/L (12-78); Albumin, Blood 1.6 g/dL (3.4-5.0); Albumin/Globulin Ratio 0.5 (0.8-1.8); Alk Phos 357 U/L (50-136); Anion Gap 5 mmol/L (6-16); Aspartate Aminotrans (AST/SGOT 74 U/L (12-37); Bilirubin, Total 14.8 mg/dL (0.1-1.0); Blood Urea Nitrogen 7 mg/dL (8-24); Bun/Creatinine Ratio 13.5 (12.0-20.0); CO2, Blood 31 mmol/L (21-32); Chloride, Blood 101 mmol/L (98-108); Creatinine, Blood 0.52 mg/dL (0.40-1.00); Globulin, Blood 3.5 g/dL (2.2-4.0); Glomerular Filtration Rate >60 (60-); Glucose, Blood 98 mg/dL (70-99); Potassium, Blood 3.7 mmol/L (3.5-5.5); Sodium, Blood 137 mmol/L (136-145); Total Protein, Blood 5.1 g/dL (6.4-8.2)
--- NOTE | 2021-10-07 06:02 | NUR ---
SHIFT SUMMERY: NO ACUTE CHANGES OVERNIGHT
[2021-10-07 15:49] LABS: Alanine Aminotransfer (ALT/SGP 101 U/L (12-78); Albumin, Blood 1.6 g/dL (3.4-5.0); Albumin/Globulin Ratio 0.4 (0.8-1.8); Alk Phos 417 U/L (50-136); Anion Gap 5 mmol/L (6-16); Aspartate Aminotrans (AST/SGOT 80 U/L (12-37); Blood Urea Nitrogen 8 mg/dL (8-24); Bun/Creatinine Ratio 15.7 (12.0-20.0); CO2, Blood 30 mmol/L (21-32); Calcium, Blood 7.6 mg/dL (8.5-10.1); Chloride, Blood 102 mmol/L (98-108); Creatinine, Blood 0.51 mg/dL (0.40-1.00); Globulin, Blood 3.7 g/dL (2.2-4.0); Glomerular Filtration Rate >60 (60-); Glucose, Blood 131 mg/dL (70-99); Potassium, Blood 3.7 mmol/L (3.5-5.5); Sodium, Blood 137 mmol/L (136-145); Total Protein, Blood 5.3 g/dL (6.4-8.2)
--- NOTE | 2021-10-07 16:47 | NUR ---
Pt recieved on bed AAOX2, on NC @3L tolerating well. Pt able to move sll extremites but is weak. Pt has Left Femoral CVC infusing Zosyn, and pulido draining adequate output. Pt assessment done, Pt has wound on perineal area and buttucks, Dr. Hawthorne aware and Wound care already consulted. 1200 Pt OOB on chair tolerating well. PT and OT ambulated and work with pt; pt tolerated well. Pt repositioned and meds given. Dr. Hawthorne and Dr. King seen and assesssed pt, orders recieved. 1600 Pt placed back on bed, tolerated well. Partial bath given and pericare done. Family @ bedside, updated on status of pt and plan of care. Pt denies pain, VSS and in no acute distress. Will monitor pt closely.
[2021-10-08 03:53] LABS: BASOPHILS ABSOLUTE AUTO 0.02 K/mm3 (0.00-0.23); BASOPHILS PERCENT AUTO 0 % (0-2); EOSINOPHILS ABSOLUTE AUTO 0.08 K/mm3 (0.00-0.68); EOSINOPHILS PERCENT AUTO 1 % (0-6); Hematocrit 20.4 % (33.0-51.0); Hemoglobin 7.3 g/dL (11.5-16.0); IMMATURE GRAN ABSOLUTE AUTO 0.47 K/mm3 (0.00-0.10); IMMATURE GRAN PERCENT AUTO 7 % (0-1); LYMPHOCYTES ABSOLUTE AUTO 1.29 K/mm3 (0.84-5.20); LYMPHOCYTES PERCENT AUTO 18 % (21-46); MONOCYTES ABSOLUTE AUTO 0.89 K/mm3 (0.16-1.47); MONOCYTES PERCENT AUTO 13 % (4-13); Mean Corpuscular HGB 31.7 pg (26.0-34.0); Mean Corpuscular HGB Conc 35.8 g/dL (31.5-36.5); Mean Corpuscular Volume 89 fL (80-100); Mean Platelet Volume 11.1 fL (9.1-12.4); NEUTROPHILS ABSOLUTE AUTO 4.27 K/mm3 (1.96-9.15); NEUTROPHILS PERCENT AUTO 61 % (41-73); NRBC ABSOLUTE 0.09 K/mm3 (0.00-0.02); NRBC Auto 1.3 /100 WBC (0.0-0.2); Platelet Count 51 K/mm3 (150-400); RDW Coefficient Variation 17.4 % (11.7-14.2); RDW Standard Deviation 51.8 fL (35.1-46.3); White Blood Cell Count 7.02 K/mm3 (4.00-11.30)
[2021-10-08 04:11] LABS: BAND PERCENT MAN 3 % (0-8); BASOPHILS PERCENT MAN 0 % (0-2); EOSINOPHILS ABSOLUTE MAN 0.07 K/mm3 (0.00-0.68); EOSINOPHILS PERCENT MAN 1 % (0-6); LYMPHOCYTES ABSOLUTE MAN 1.47 K/mm3 (0.84-5.20); LYMPHOCYTES PERCENT MAN 21 % (21-46); MONOCYTES ABSOLUTE MAN 0.42 K/mm3 (0.16-1.47); MONOCYTES PERCENT MAN 6 % (4-13); MYELOCYTE ABSOLUTE MAN 0.07 K/mm3 (0.00-0.00); MYELOCYTE PERCENT MAN 1 % (0-0); NEUTROPHILS ABSOLUTE MAN 4.98 K/mm3 (1.96-9.15); SEG NEUTROPHILS PERCENT MAN 68 % (41-73); TOTAL CELLS COUNTED 100
--- NOTE | 2021-10-08 06:11 | NUR ---
SHIFT SUMMERY: NO ACUTE CHANGES OVERNIGHT
[2021-10-08 14:07] LABS: C DIFFICILE DNA NEGATIVE (Negative)
--- NOTE | 2021-10-08 19:00 | NUR ---
REPORT RECIEVED AND ASSUMED CARE
--- NOTE | 2021-10-08 20:00 | NUR ---
ASSESSEMENT COMPLETE. DENIES NEEDS, TURNED AND REPOSITIONED. BUTTOCKS, PERIAREA, AND GROIN VERY EXORIEATED, WITH BLEEDING. CLEANSED AND CREAMS APPLIED.
--- NOTE | 2021-10-09 05:03 | NUR ---
RESTED THROUGH OUT NIGHT. DENIES PAIN EXCEPT WITH TOUCH OF PERIAREA/BUTTOCKS. TURNS PER SELF OR WHEN REMINDED. BUTTOCKS AND PERIAREA WITH LARGE AMOUNT OF DRAINAGE FROM EXORIATION, BEDPAD CHANGED AND NEW MANNY OINTMENT AND NYSTATIN APPLIED NEEDED. REMAINED ORIENTED THROUGH NIGHT WITH OCCASIONAL FORGETFULNESS AT TIMES. UNABLE TO OBTAINED ORDERED SPUTUM SPECIMEN, COUGH NONPRODUCTIVE.
[2021-10-09 08:42] LABS: Hematocrit 20.5 % (33.0-51.0); Hemoglobin 7.2 g/dL (11.5-16.0); Mean Corpuscular HGB 32.3 pg (26.0-34.0); Mean Corpuscular HGB Conc 35.1 g/dL (31.5-36.5); Mean Corpuscular Volume 92 fL (80-100); Mean Platelet Volume 11.4 fL (9.1-12.4); NRBC ABSOLUTE 0.04 K/mm3 (0.00-0.02); NRBC Auto 0.5 /100 WBC (0.0-0.2); Platelet Count 63 K/mm3 (150-400); RDW Coefficient Variation 18.8 % (11.7-14.2); RDW Standard Deviation 56.9 fL (35.1-46.3); Red Blood Cell Count 2.23 M/mm3 (3.80-5.20); White Blood Cell Count 8.06 K/mm3 (4.00-11.30)
[2021-10-09 08:59] LABS: Alanine Aminotransfer (ALT/SGP 82 U/L (12-78); Albumin, Blood 1.6 g/dL (3.4-5.0); Albumin/Globulin Ratio 0.4 (0.8-1.8); Alk Phos 483 U/L (50-136); Anion Gap 4 mmol/L (6-16); Aspartate Aminotrans (AST/SGOT 66 U/L (12-37); Bilirubin, Total 6.6 mg/dL (0.1-1.0); Blood Urea Nitrogen 9 mg/dL (8-24); Bun/Creatinine Ratio 18.1 (12.0-20.0); CO2, Blood 30 mmol/L (21-32); Chloride, Blood 100 mmol/L (98-108); Globulin, Blood 3.8 g/dL (2.2-4.0); Glomerular Filtration Rate >60 (60-); Glucose, Blood 79 mg/dL (70-99); Potassium, Blood 4.3 mmol/L (3.5-5.5); Sodium, Blood 134 mmol/L (136-145); Total Protein, Blood 5.4 g/dL (6.4-8.2)
--- NOTE | 2021-10-09 12:17 | NUR ---
PATIENT A&0X4 THIS MORINING. NO COMPLAINTS OF PAIN BESIDES BUTTOCKS AND VAIBHAV AREA WHICH IS RAW AND EXCORIATED. SHE IS ON 2L NC, HAS A NON-PRODUCTIVE COUGH, LUNG SOUNDS RHONCHI. BP WNL. SR. URINE DAVID. DISCUSSED KIRAN REMOVAL WITH DR. NORIEGA, PATIENT HAS LARGE AREA OF OPEN, RAW SKIN IN BUTTOCKS AND GROIN, PATIENT IS INCONTINENT OF URINE, KIRAN LEFT IN ORDER TO FACILITATE HEALING THESE WOUNDS. CENTRAL LINE REMOVED PER ORDER, AREA AROUND INSERTION SITE IS RAW.
--- NOTE | 2021-10-09 18:40 | NUR ---
NO ACUTE CHANGES THIS SHIFT. WOUNDS IN VAIBHAV/GROIN AND BUTTOCKS AREA REMAIN RAW AND PAINFUL. GOT UP TO COMMODE THIS EVENING. CORNELIUS IS WEAK BUT ABLE TO BEAR HER OWN WEIGHT.
[2021-10-10 03:28] LABS: Hematocrit 21.1 % (33.0-51.0); Hemoglobin 7.3 g/dL (11.5-16.0); Mean Corpuscular HGB 32.6 pg (26.0-34.0); Mean Corpuscular HGB Conc 34.6 g/dL (31.5-36.5); Mean Corpuscular Volume 94 fL (80-100); Mean Platelet Volume 11.5 fL (9.1-12.4); NRBC ABSOLUTE 0.02 K/mm3 (0.00-0.02); NRBC Auto 0.2 /100 WBC (0.0-0.2); Platelet Count 68 K/mm3 (150-400); RDW Coefficient Variation 19.3 % (11.7-14.2); Red Blood Cell Count 2.24 M/mm3 (3.80-5.20); White Blood Cell Count 9.03 K/mm3 (4.00-11.30)
--- NOTE | 2021-10-10 03:41 | NUR ---
SHIFT SUMMARY: PT HAD RESTFUL SHIFT, SLEPT AT LONG INTERVALS, VERY [place], FAMILY DID NOT BRING IN HEARING AIDES TO HELP IMPROVE COMMUNICATION, NO C/O PAIN EXCEPT BUTTOCK AREA DUE TO RASH AND EXCORIATION. TELE D/C'D, VSS, BP SOFT, ABLE TO VERBALIZE NEEDS, NONPRODUCTIVE COUGH, CONTINENET BOWEL, KIRAN REMAINS IN DUE TO SKIN BREAKDOWN. PT TURNING INDEPENDENTLY FROM SIDE TO SIDE TO OFFLOAD BUTTOCKS. BED LOCKED AND LOW, CALL BEY IN REACH, PT USING IT APPROPRIATELY. BETO SMITH
[2021-10-10 03:46] LABS: Alanine Aminotransfer (ALT/SGP 73 U/L (12-78); Albumin, Blood 1.6 g/dL (3.4-5.0); Albumin/Globulin Ratio 0.4 (0.8-1.8); Alk Phos 456 U/L (50-136); Anion Gap 5 mmol/L (6-16); Aspartate Aminotrans (AST/SGOT 56 U/L (12-37); Bilirubin, Total 5.1 mg/dL (0.1-1.0); Blood Urea Nitrogen 12 mg/dL (8-24); Bun/Creatinine Ratio 23.3 (12.0-20.0); CO2, Blood 29 mmol/L (21-32); Calcium, Blood 7.9 mg/dL (8.5-10.1); Chloride, Blood 99 mmol/L (98-108); Creatinine, Blood 0.52 mg/dL (0.40-1.00); Globulin, Blood 3.9 g/dL (2.2-4.0); Glomerular Filtration Rate >60 (60-); Glucose, Blood 90 mg/dL (70-99); Potassium, Blood 4.3 mmol/L (3.5-5.5); Sodium, Blood 133 mmol/L (136-145); Total Protein, Blood 5.5 g/dL (6.4-8.2)
--- NOTE | 2021-10-10 16:08 | NUR ---
Assumed care of Pt at 1100: AOx4, flat affect, denies N/V, BP WNL, +2/+1 pulses respectively, sats WNl on RA when awake vs. 2l NC when asleep, corase/dim lungs, denies SOB, pulido continues for skin integrity los output, audible bowels, 2 small formed BMs this shift, groin excoriation/cocyx wound changed saline/powder/abd/foam pads for protection, reprot given and Pt transfered to room 357.
--- NOTE | 2021-10-10 17:33 | NUR ---
SHIFT SUMMARY 1600 PT TX'D TO RM 357 VIA W/C FROM ICU 10. PT ABLE TO TX SELF TO BED WITH SBA. PT DRSG TO COCCYX C/D/I. DRSG TO L GROIN C/D/I. PT TX WITH KIRAN IN PLACE. RECEIVED REPORT FROM STEPHANY PÉREZ; KIRAN CATH D/T VAIBHAV AREA, GROIN, AND COCCYX EXCORIATION. KIRAN PATENT, DRAINING CL DAVID URINE. PT UP TO BTHRM WITH 1P ASSIST USING FWW. BM X3 TODAY. PT ASSISTED BACK TO BED. A&O, PLEASANT AND CO-OP. CALL LT IN REACH. ABLE TO MAKE NEEDS KNOWN.
--- NOTE | 2021-10-11 04:59 | NUR ---
PT IS AA&OX3. ABLE TO MAKE NEEDS KNOWN. PT IS COOPERATIVE WITH CARE. KIRAN CATHETER PATENT AND DRAINING DARK YELLOW URINE TO GRAVITY. 0330 PT C/O INABILITY TO SLEEP AT NIGHT. NOTIFIED. 5MG PRN MELATONIN ORDERED FOR SUBSEQUENT NIGHTS IT WAS TOO LATE IN THE MORNING TO TAKE SLEEP MEDS. ADLS PROVIDED, SAFETY MEASURES IN PLACE. WILL CONTINUE TO MONITOR.
[2021-10-11 05:21] LABS: Hematocrit 20.2 % (33.0-51.0); Mean Corpuscular HGB 33.2 pg (26.0-34.0); Mean Corpuscular HGB Conc 34.7 g/dL (31.5-36.5); Mean Corpuscular Volume 96 fL (80-100); Mean Platelet Volume 11.9 fL (9.1-12.4); Platelet Count 79 K/mm3 (150-400); RDW Coefficient Variation 18.8 % (11.7-14.2); RDW Standard Deviation 62.4 fL (35.1-46.3); Red Blood Cell Count 2.11 M/mm3 (3.80-5.20); White Blood Cell Count 7.32 K/mm3 (4.00-11.30)
[2021-10-11 06:10] LABS: Alanine Aminotransfer (ALT/SGP 67 U/L (12-78); Albumin, Blood 1.7 g/dL (3.4-5.0); Albumin/Globulin Ratio 0.5 (0.8-1.8); Alk Phos 404 U/L (50-136); Anion Gap 5 mmol/L (6-16); Aspartate Aminotrans (AST/SGOT 51 U/L (12-37); Bilirubin, Total 4.3 mg/dL (0.1-1.0); Blood Urea Nitrogen 10 mg/dL (8-24); Bun/Creatinine Ratio 21.4 (12.0-20.0); CO2, Blood 29 mmol/L (21-32); Calcium, Blood 8.1 mg/dL (8.5-10.1); Chloride, Blood 96 mmol/L (98-108); Creatinine, Blood 0.47 mg/dL (0.40-1.00); Globulin, Blood 3.5 g/dL (2.2-4.0); Glomerular Filtration Rate >60 (60-); Glucose, Blood 83 mg/dL (70-99); Potassium, Blood 4.1 mmol/L (3.5-5.5); Sodium, Blood 130 mmol/L (136-145); Total Protein, Blood 5.2 g/dL (6.4-8.2)
--- NOTE | 2021-10-11 16:36 | NUR ---
Supportive visit this afternoon. Pt resting in bed upon arrival. Pt's son Hunter is at bedside. Pt denies pain and dyspnea at this time. Engaged in gentle advanced care planning. Son Hunter request to not go into too much detail in fears that Pt may become fearful. Discussed the importance of compliance and routine visits with PCP and GI. Answered questions and listened as Hunter reports plan for Pt to live with him. He reports Pt currently lives with Pt's brother and cousin who supply her with alcohol. Continued supportive visit. Hunter and Pt express appreciation of visit and report no other concerns at this time. Spoke with Primary RN Beena and discussed case. Palliative Care will remain available.
--- NOTE | 2021-10-11 17:20 | NUR ---
SHIFT SUMMARY PT IS A&O, PLEASANT AND CO-OP. CONTINUES TO IMPROVE. PT WANTING TO BE INDEPENDENT IN AND TO [facility], [place]. ALSO REQUESTED KIRAN CATH D/C'D; DONE PER PT REQUEST. PT UP VOIDING W/O DIFFICULTY. UP TO SHOWER THIS AFTERNOON. SON TO TO VISIT. VERONIKA PÉREZ, FROM PALLIATIVE CARE HERE TO DISCUSS ADVANCED CARE PLANNING R/T LIVER. PT'S SON TO HELP GET PT OUT OF ALCOHOL DRINKING SITUATION AND MOVE PT IN WITH HIM. RESTING QUIETLY WATCHING TV. DENIES FURTHER NEEDS AT THIS TIME. CALL LT IN REACH.
--- NOTE | 2021-10-12 05:29 | NUR ---
SHIFT SUMMARY PT RESTING ON BED. NO ACUTE DISTRESS OVERNIGHT. DENIES PAIN AND DISCOMFORT.
[2021-10-12 05:42] LABS: Hematocrit 21.9 % (33.0-51.0); Hemoglobin 7.6 g/dL (11.5-16.0); Mean Corpuscular HGB 33.3 pg (26.0-34.0); Mean Corpuscular HGB Conc 34.7 g/dL (31.5-36.5); Mean Corpuscular Volume 96 fL (80-100); Mean Platelet Volume 11.1 fL (9.1-12.4); Platelet Count 78 K/mm3 (150-400); RDW Coefficient Variation 18.9 % (11.7-14.2); Red Blood Cell Count 2.28 M/mm3 (3.80-5.20); White Blood Cell Count 5.54 K/mm3 (4.00-11.30)
[2021-10-12 06:43] LABS: Alanine Aminotransfer (ALT/SGP 65 U/L (12-78); Albumin, Blood 2.1 g/dL (3.4-5.0); Albumin/Globulin Ratio 0.6 (0.8-1.8); Alk Phos 344 U/L (50-136); Anion Gap 9 mmol/L (6-16); Aspartate Aminotrans (AST/SGOT 54 U/L (12-37); Bilirubin, Total 3.8 mg/dL (0.1-1.0); Blood Urea Nitrogen 8 mg/dL (8-24); Bun/Creatinine Ratio 18.7 (12.0-20.0); CO2, Blood 29 mmol/L (21-32); Chloride, Blood 91 mmol/L (98-108); Creatinine, Blood 0.43 mg/dL (0.40-1.00); Globulin, Blood 3.6 g/dL (2.2-4.0); Glomerular Filtration Rate >60 (60-); Glucose, Blood 103 mg/dL (70-99); Potassium, Blood 3.6 mmol/L (3.5-5.5); Sodium, Blood 129 mmol/L (136-145); Total Protein, Blood 5.7 g/dL (6.4-8.2)
--- NOTE | 2021-10-12 17:08 | NUR ---
SHIFT SUMMARY PT IS AOX3-4. PT DENIES PAIN, N/V, SOB. PT APPETITE IS GOOD. PT FREQUENTLY UP TO BATHROOOM T/O SHIFT. PT IS CONTINENT/INCONTINENT. PT DID NOT HAVE VISITORS THIS SHIFT. PT VSS. PT IS IN BED, CALL LIGHT IN REACH, LOW POSITION.
[2021-10-13 05:21] LABS: Alanine Aminotransfer (ALT/SGP 58 U/L (12-78); Albumin, Blood 2.5 g/dL (3.4-5.0); Albumin/Globulin Ratio 0.7 (0.8-1.8); Alk Phos 293 U/L (50-136); Anion Gap 9 mmol/L (6-16); Aspartate Aminotrans (AST/SGOT 42 U/L (12-37); Bilirubin, Total 3.6 mg/dL (0.1-1.0); Blood Urea Nitrogen 9 mg/dL (8-24); Bun/Creatinine Ratio 21.3 (12.0-20.0); CO2, Blood 30 mmol/L (21-32); Calcium, Blood 8.5 mg/dL (8.5-10.1); Chloride, Blood 89 mmol/L (98-108); Creatinine, Blood 0.42 mg/dL (0.40-1.00); Globulin, Blood 3.5 g/dL (2.2-4.0); Glomerular Filtration Rate >60 (60-); Glucose, Blood 90 mg/dL (70-99); Potassium, Blood 3.3 mmol/L (3.5-5.5); Sodium, Blood 128 mmol/L (136-145)
--- NOTE | 2021-10-13 06:38 | NUR ---
SHIFT SUMMARY PT ALERT AND ORIENTED. RESTING ON BED QUIETLY. USE BATHROOM SEVERAL TIMES. CREAM APPLIED TO REDNESS. CALL LIGHT EASTONIN REACH. NO ACUTE DISTRESS OBSERVED.
[2021-10-13] MEDS ORDERED: MIDO5 PO (10:26)
[2021-10-13] MEDS ORDERED: FURO20 PO (10:27)
[2021-10-13] MEDS ORDERED: PANT40 PO (10:27)
[2021-10-13] MEDS ORDERED: ALDACTONE25 MG PO (10:28)
[2021-10-13] MEDS ORDERED: Vitamin B-Comp1 EAC7 PO (10:29)
[2021-10-13] MEDS ORDERED: NEPHROCAP PO (10:57)
--- NOTE | 2021-10-13 15:47 | NUR ---
DISCHARGE SUMMARY DISCHARGED HOME WITH SON (SARA). IV REMOVED. PT HAD SHOWER BEFORE DISCHARGE. MED LIST FAXED TO PHARMACY WITH ATTENTION TO MEDS NEEDED. DISCHARGE PAPERWORK AND MEDS REVIEWED WITH PT WITH PT SIGNATURE. PT TRANSPORTED TO CAR IN WHEELCHAIR BY REGISTERED RADIATION THERAPIST ACCOMPANIED BY PT'S SON. BELONGINGS WITH PT.
--- NOTE | 2021-10-14 09:38 | NUR ---
Received referral from nurse child care leader (Brooklyn Mao) on 10/13/2021. Patient discharged 10/13/2021 and was to have orders for home health and elected [facility]. However, review of patient's chart today- 10/14/2021 indicates that no home health orders were written at discharge. No further interventions Sunitha Olivarez Referral Liaison
== END 2021-10-13 15:33 | disposition home or self-care (01) | DRG 432 ==
LOC: ER 20:50 → ICUW 10-01 00:05 → MEDS 10-10 16:00
PROVIDERS: Emergency Medicine; Family Medicine; Internal Medicine; Internal Medicine Critical Care Medicine; ADMIT Internal Medicine
PROC: 30233N1 Transfusion of Nonautologous Red Blood Cells into Peripheral Vein, Percutaneous Approach (ICD-10-PCS; principal; 2021-10-01)
PROC: 06HY33Z Insertion of Infusion Device into Lower Vein, Percutaneous Approach (ICD-10-PCS; 2021-10-01)
PROC: B54CZZZ Ultrasonography of Left Lower Extremity Veins (ICD-10-PCS; 2021-10-01)
PROC: 3E043XZ Introduction of Vasopressor into Central Vein, Percutaneous Approach (ICD-10-PCS; 2021-10-01)
PROC: 5A09357 Assistance with Respiratory Ventilation, Less than 24 Consecutive Hours, Continuous Positive Airway Pressure (ICD-10-PCS; 2021-10-05)
DX: K70.10 Alcoholic hepatitis without ascites (principal); G92.8 Other toxic encephalopathy; J96.01 Acute respiratory failure with hypoxia; E87.1 Hypo-osmolality and hyponatremia; I50.32 Chronic diastolic (congestive) heart failure; R57.9 Shock, unspecified; E46 Unspecified protein-calorie malnutrition; D68.9 Coagulation defect, unspecified; Z20.822 Contact with and (suspected) exposure to COVID-19; K70.40 Alcoholic hepatic failure without coma; F10.20 Alcohol dependence, uncomplicated; Z78.1 Physical restraint status; E83.51 Hypocalcemia; E83.42 Hypomagnesemia; D53.9 Nutritional anemia, unspecified; Z68.29 Body mass index [BMI] 29.0-29.9, adult; E88.09 Other disorders of plasma-protein metabolism, not elsewhere classified; R56.9 Unspecified convulsions; I11.0 Hypertensive heart disease with heart failure; J44.9 Chronic obstructive pulmonary disease, unspecified; G47.33 Obstructive sleep apnea (adult) (pediatric); K70.30 Alcoholic cirrhosis of liver without ascites; E78.5 Hyperlipidemia, unspecified; K21.9 Gastro-esophageal reflux disease without esophagitis; I48.0 Paroxysmal atrial fibrillation; F17.210 Nicotine dependence, cigarettes, uncomplicated; Z91.048 Other nonmedicinal substance allergy status; Z79.899 Other long term (current) drug therapy; Z79.82 Long term (current) use of aspirin; Z98.890 Other specified postprocedural states
CPT/HCPCS: 36415; 36430; 36556; 70450; 71045; 74176; 80048; 80053; 81001; 82140; 82272; 82330; 82533; 82607; 82728; 82746; 82803; 83540; 83550; 83735; 83880; 84100; 84443; 85014; 85018; 85025; 85027; 85610; 85730; 86850; 86900; 86901; 86923; 87040; 87086; 87493; 93005; 93010; 93306; 94640; 94660; 94760; 94762; 96365; 96366; 97110; 97116; 97162; 97166; 97530; 97535; 99285-25; A9270; C1751; C9113; G0480; J1265; J1940; J2354; J2543; J3010; J3475; J3480; J7030; J7050; J7060; J7070; P9016; P9046; U0004

== ENCOUNTER 2021-10-22 23:41 | Emergency (ER) | payer OTHER ==
[~2021-10-22] VITALS: Ht 144.8 cm; Wt 56.2 kg
[~2021-10-22 23:41] MED LIST changes: +ALDACTONE25 MG PO; +FURO20 PO; +METO50ER PO; +MIDO5 PO; +NEPHROCAP PO; +Vitamin B-Comp1 EAC7 PO
[2021-10-23 00:52] LABS: BASOPHILS ABSOLUTE AUTO 0.05 K/mm3 (0.00-0.23); BASOPHILS PERCENT AUTO 1 % (0-2); EOSINOPHILS ABSOLUTE AUTO 0.39 K/mm3 (0.00-0.68); EOSINOPHILS PERCENT AUTO 8 % (0-6); Hematocrit 25.5 % (33.0-51.0); Hemoglobin 8.8 g/dL (11.5-16.0); IMMATURE GRAN ABSOLUTE AUTO 0.01 K/mm3 (0.00-0.10); IMMATURE GRAN PERCENT AUTO 0 % (0-1); LYMPHOCYTES ABSOLUTE AUTO 1.49 K/mm3 (0.84-5.20); LYMPHOCYTES PERCENT AUTO 30 % (21-46); MONOCYTES ABSOLUTE AUTO 0.66 K/mm3 (0.16-1.47); MONOCYTES PERCENT AUTO 14 % (4-13); Mean Corpuscular HGB 33.7 pg (26.0-34.0); Mean Corpuscular HGB Conc 34.5 g/dL (31.5-36.5); Mean Corpuscular Volume 98 fL (80-100); Mean Platelet Volume 9.5 fL (9.1-12.4); NEUTROPHILS PERCENT AUTO 47 % (41-73); Platelet Count 358 K/mm3 (150-400); RDW Coefficient Variation 16.8 % (11.7-14.2); RDW Standard Deviation 59.8 fL (35.1-46.3); Red Blood Cell Count 2.61 M/mm3 (3.80-5.20)
[2021-10-23 01:12] LABS: Alanine Aminotransfer (ALT/SGP 52 U/L (12-78); Albumin, Blood 2.7 g/dL (3.4-5.0); Albumin/Globulin Ratio 0.6 (0.8-1.8); Alk Phos 134 U/L (50-136); Anion Gap 8 mmol/L (6-16); Aspartate Aminotrans (AST/SGOT 30 U/L (12-37); Bilirubin, Total 1.8 mg/dL (0.1-1.0); Blood Urea Nitrogen 8 mg/dL (8-24); Bun/Creatinine Ratio 17.4 (12.0-20.0); CO2, Blood 24 mmol/L (21-32); Calcium, Blood 8.8 mg/dL (8.5-10.1); Chloride, Blood 101 mmol/L (98-108); Creatinine, Blood 0.46 mg/dL (0.40-1.00); Ethanol (Alcohol), Blood, Med <3 mg/dL; Globulin, Blood 4.4 g/dL (2.2-4.0); Glomerular Filtration Rate >60 (60-); Glucose, Blood 93 mg/dL (70-99); Sodium, Blood 133 mmol/L (136-145); Total Protein, Blood 7.1 g/dL (6.4-8.2)
[2021-10-23 01:45] LABS: Source, Urine Clean Catch
[2021-10-23 01:47] LABS: Bilirubin, Urine Neg (Neg); Blood, Urine Neg (Neg); Glucose Qualitative, Urine Neg (Neg); Ketones, Urine Neg (Neg); Leukocyte Esterase, Urine Neg (Neg); Nitrite, Urine Neg (Neg); Protein, Urine Neg (Neg); Urobilinogen, Urine NORM (Normal)
[2021-10-23 01:48] LABS: Appearance, Urine Clear (Clear); Color, Urine Yellow (P-Yellow)
[2021-10-23 01:56] LABS: U Amphetamine Screen Not Detected; U Barbituate Screen Not Detected; U Benzodiazapine Screen Not Detected; U Buprenorphine Screen Not Detected; U Cannabinoids Screen DETECTED; U Cocaine Screen Not Detected; U Methadone Screen Not Detected; U Methamphetamine Screen Not Detected; U Opiates Screen Not Detected; U Oxycodone Screen Not Detected; U Phencyclidine Screen Not Detected
[2021-10-23 01:57] LABS: U Propoxyphene Screen Not Detected
== END 2021-10-23 02:35 | disposition home or self-care (01) ==
LOC: ER 23:41
PROVIDERS: Student in an Organized Health Care Education/Training Program
DX: R53.1 Weakness (principal); R25.1 Tremor, unspecified; I11.0 Hypertensive heart disease with heart failure; I50.9 Heart failure, unspecified; J44.9 Chronic obstructive pulmonary disease, unspecified; G40.909 Epilepsy, unspecified, not intractable, without status epilepticus; K21.9 Gastro-esophageal reflux disease without esophagitis; I48.91 Unspecified atrial fibrillation; F17.200 Nicotine dependence, unspecified, uncomplicated; Z91.048 Other nonmedicinal substance allergy status; Z79.899 Other long term (current) drug therapy; Z79.82 Long term (current) use of aspirin
CPT/HCPCS: 36415; 70450; 80053; 81003; 82140; 85025; G0480

== ENCOUNTER 2022-10-20 12:27 | Day surgery (SDC) | payer OTHER ==
[2022-10-20] MEDS ORDERED: GABA300 (12:46)
[2022-10-20] MEDS ORDERED: FOLI1 (12:46)
[2022-10-20] MEDS ORDERED: PRAV20 (12:47)
== END 2022-10-20 14:35 | disposition home or self-care (01) ==
DX: Z87.19 Personal history of other diseases of the digestive system (principal); K44.9 Diaphragmatic hernia without obstruction or gangrene; I48.91 Unspecified atrial fibrillation; Z86.73 Personal history of transient ischemic attack (TIA), and cerebral infarction without residual deficits; I10 Essential (primary) hypertension; K21.9 Gastro-esophageal reflux disease without esophagitis; I48.0 Paroxysmal atrial fibrillation; E78.5 Hyperlipidemia, unspecified; G47.33 Obstructive sleep apnea (adult) (pediatric); D64.9 Anemia, unspecified; F17.210 Nicotine dependence, cigarettes, uncomplicated; Z79.82 Long term (current) use of aspirin; Z79.01 Long term (current) use of anticoagulants; Z79.899 Other long term (current) drug therapy